=== PATIENT | male | born 1940 | race Caucasian/White ===

== ENCOUNTER 2022-08-05 13:49 | Inpatient (IN) | payer MEDICARE, BC ==
[2022-08-05 16:45] LABS: Basophils % (A) 0 %; Eosinophils # (A) 0.1 k/uL (0-0.7); Eosinophils % (A) 1 %; HCT 45.5 % (39.0-53.0); HGB 15.3 gm/dL (13.0-17.5); Lymphocytes # (A) 1.1 k/uL (1.0-4.8); Lymphocytes % (A) 11 %; MCH 30.6 pg (25.0-35.0); MCHC 33.6 g/dL (31.0-37.0); MCV 91.2 fL (80.0-100.0); Mean Platelet Volume 7.3; Monocytes # (A) 0.4 k/uL (0-1.0); Monocytes % (A) 4 %; Neutrophils # (A) 7.7 k/uL (1.3-7.7); Neutrophils % (A) 81 %; Platelet Count 159 k/uL (150-450); RBC 4.99 m/uL (4.30-5.90); RDW 13.8 % (11.5-15.5); WBC 9.5 k/uL (3.8-10.6)
--- NOTE | 2022-08-05 16:48 | ED ---
General Adult HPI - General Chief complaint: Weakness Stated complaint: hypotension 84/53, dizziness Time Seen by Provider: 08/05/22 14:58 Source: patient, family, RN notes reviewed, old records reviewed Mode of arrival: ambulatory Limitations: no limitations - History of Present Illness Initial comments: 81-year-old male alert and oriented 4 presents to the emergency room with 2 family members complaining of weakness for the past week. He states over the past 3 days he has had chills and abdominal pain intermittently. Family states they checked his temperature and it was 100.5. Family states that he has had these intermittent chills for years but never had a fever in the past. Patient denies any nausea vomiting, cough, sore throat or runny nose. No known sick contacts. He did take a coronavirus test at home that was negative. Patient states he did talk to his primary care doctor about his chills and they have been unable to find a cause. He did call his primary care doctor today who recommended he come to the emergency room for evaluation. He does have a history of coronary artery disease, hypertension and irritable bowel. -: days(s) (3) Location: abdomen Consistency: intermittent, now resolved Associated Symptoms: fever/chills, other (dizziness) - Related Data Home Medications Medication Instructions Recorded Confirmed Aspirin EC [Ecotrin Low Dose] 81 mg PO W/KFST 08/05/22 08/05/22 Aspirin/Sod Bicarb/Citric Acid 1 tab PO QID PRN 08/05/22 08/05/22 [Catalina-Macy Original Tab Eff] Calcium Carbonate [Tums] 1,000 mg PO TID PRN 08/05/22 08/05/22 Cholecalciferol [Vitamin D3 (25 50 mcg PO W/BRKFST 08/05/22 08/05/22 Mcg = 1000 Iu)] Docusate [Colace] 100 mg PO DAILY PRN 08/05/22 08/05/22 Famotidine [Pepcid AC] 10 mg PO DAILY PRN 08/05/22 08/05/22 Finasteride [Proscar] 5 mg PO Q2D@1700 08/05/22 08/05/22 Levothyroxine Sodium [Synthroid] 75 mcg PO AC-BRKFST 08/05/22 08/05/22 Losartan Potassium 100 mg PO W/BRKFST 08/05/22 08/05/22 Metoprolol Tartrate [Lopressor] 25 mg PO TID-W/MEALS 08/05/22 08/05/22 Tamsulosin [Flomax] 0.4 mg PO W/SUPPER 08/05/22 08/05/22 diazePAM [Valium] 2 mg PO BID PRN 08/05/22 08/05/22 hydroCHLOROthiazide [Hydrodiuril] 25 mg PO W/BRKFST 08/05/22 08/05/22 Allergies Allergy/AdvReac Type Severity Reaction Status Date / Time No Known Allergies Allergy Verified 08/05/22 18:20 Review of Systems ROS Statement: Those systems with pertinent positive or pertinent negative responses have been documented in the HPI. ROS Other: All systems not noted in ROS Statement are negative. Past Medical History Past Medical History: Coronary Artery Disease (CAD), GERD/Reflux, Hypertension, Prostate Disorder, Thyroid Disorder History of Any Multi-Drug Resistant Organisms: None Reported Past Surgical History: No Surgical Hx Reported Past Psychological History: No Psychological Hx Reported Smoking Status: Never smoker Past Alcohol Use History: None Reported Past Drug Use History: None Reported General Exam Limitations: no limitations General appearance: alert, in no apparent distress Head exam: Present: atraumatic Eye exam: Absent: scleral icterus, conjunctival injection, periorbital swelling ENT exam: Present: mucous membranes moist, other (poor dentition) Neck exam: Present: normal inspection. Absent: tenderness, meningismus Respiratory exam: Present: normal lung sounds bilaterally, rales (bases). Absent: respiratory distress, wheezes, rhonchi, stridor, accessory muscle use Cardiovascular Exam: Present: regular rate GI/Abdominal exam: Present: soft. Absent: distended, tenderness, guarding, rebound, rigid Extremities exam: Present: normal capillary refill. Absent: pedal edema Back exam: Present: normal inspection. Absent: tenderness, CVA tenderness (R), CVA tenderness (L), rash noted Neurological exam: Present: alert, oriented X3 Psychiatric exam: Present: normal affect, normal mood Skin exam: Present: warm, dry, normal color. Absent: cyanosis, diaphoretic, petechiae, pallor Course Vital Signs 08/05/22 14:08 Temperature 97.9 F Pulse Rate 76 Respiratory 20 Rate Blood Pressure 125/73 O2 Sat by Pulse 99 Oximetry EKG Findings - EKG Results: EKG: sinus rhythm (Sinus rhythm, ventricular rate of 68, VA interval 0.20, QRS 0.129, QTC 0.420; left axis deviation; occasional PVC; no old to compare) Medical Decision Making - Medical Decision Making Patient presents with 1 week of generalized malaise worsening over past 3 days with some shortness of breath. Family states he did have a low-grade temperature of 100.5 Chest x-ray shows a possible lower lobe infiltrate with pulmonary vascular congestion consistent with congestive heart failure. Due to the patient's complaints of fever with possible lower lobe infiltrate on xr, patient will be treated with IV antibiotics. BNP 3200. Patient was given IV Lasix. Troponin is negative at 0.012 EKG shows sinus rhythm. Coronavirus test negative. Oxygen saturation is 99% on room air. Family and patient unsure if he has a history of congestive heart failure. Case discussed with Dr. Zayas, patient will be admitted for congestive heart failure with cardiology consult. - Lab Data Result diagrams: 08/05/22 16:34 08/05/22 16:34 Lab Results 08/05/22 08/05/22 08/05/22 Range/Units 16:34 16:34 16:34 WBC 9.5 (3.8-10.6) k/uL RBC 4.99 (4.30-5.90) m/uL Hgb 15.3 (13.0-17.5) gm/dL Hct 45.5 (39.0-53.0) % MCV 91.2 (80.0-100.0) fL MCH 30.6 (25.0-35.0) pg MCHC 33.6 (31.0-37.0) g/dL RDW 13.8 (11.5-15.5) % Plt Count 159 (150-450) k/uL MPV 7.3 Neutrophils % 81 % Lymphocytes % 11 % Monocytes % 4 % Eosinophils % 1 % Basophils % 0 % Neutrophils # 7.7 (1.3-7.7) k/uL Lymphocytes # 1.1 (1.0-4.8) k/uL Monocytes # 0.4 (0-1.0) k/uL Eosinophils # 0.1 (0-0.7) k/uL Basophils # 0.0 (0-0.2) k/uL PT 10.7 (9.0-12.0) sec INR 1.0 (<1.2) APTT 25.6 (22.0-30.0) sec Sodium 135 L (137-145) mmol/L Potassium 3.4 L (3.5-5.1) mmol/L Chloride 100 (98-107) mmol/L Carbon Dioxide 21 L (22-30) mmol/L Anion Gap 14 mmol/L BUN 15 (9-20) mg/dL Creatinine 0.92 (0.66-1.25) mg/dL Est GFR (CKD-EPI)AfAm 89 (>60 ml/min/1.73 sqM) Est GFR (CKD-EPI)NonAf 77 (>60 ml/min/1.73 sqM) Glucose 92 (74-99) mg/dL Calcium 8.9 (8.4-10.2) mg/dL Magnesium 1.8 (1.6-2.3) mg/dL Total Bilirubin 0.4 (0.2-1.3) mg/dL AST 34 (17-59) U/L ALT 17 (4-49) U/L Alkaline Phosphatase 74 (38-126) U/L Troponin I (0.000-0.034) ng/mL NT-Pro-B Natriuret Pep pg/mL Total Protein 6.8 (6.3-8.2) g/dL Albumin 3.8 (3.5-5.0) g/dL Coronavirus (PCR) (Not Detectd) 08/05/22 08/05/22 08/05/22 Range/Units 16:34 16:34 17:29 WBC (3.8-10.6) k/uL RBC (4.30-5.90) m/uL Hgb (13.0-17.5) gm/dL Hct (39.0-53.0) % MCV (80.0-100.0) fL MCH (25.0-35.0) pg MCHC (31.0-37.0) g/dL RDW (11.5-15.5) % Plt Count (150-450) k/uL MPV Neutrophils % % Lymphocytes % % Monocytes % % Eosinophils % % Basophils % % Neutrophils # (1.3-7.7) k/uL Lymphocytes # (1.0-4.8) k/uL Monocytes # (0-1.0) k/uL Eosinophils # (0-0.7) k/uL Basophils # (0-0.2) k/uL PT (9.0-12.0) sec INR (<1.2) APTT (22.0-30.0) sec Sodium (137-145) mmol/L Potassium (3.5-5.1) mmol/L Chloride (98-107) mmol/L Carbon Dioxide (22-30) mmol/L Anion Gap mmol/L BUN (9-20) mg/dL Creatinine (0.66-1.25) mg/dL Est GFR (CKD-EPI)AfAm (>60 ml/min/1.73 sqM) Est GFR (CKD-EPI)NonAf (>60 ml/min/1.73 sqM) Glucose (74-99) mg/dL Calcium (8.4-10.2) mg/dL Magnesium (1.6-2.3) mg/dL Total Bilirubin (0.2-1.3) mg/dL AST (17-59) U/L ALT (4-49) U/L Alkaline Phosphatase (38-126) U/L Troponin I <0.012 (0.000-0.034) ng/mL NT-Pro-B Natriuret Pep 3200 pg/mL Total Protein (6.3-8.2) g/dL Albumin (3.5-5.0) g/dL Coronavirus (PCR) Not Detected (Not Detectd) Disposition Clinical Impression: CHF (congestive heart failure) Disposition: ADMITTED IP TO THIS HOSP Referrals: Alli Gustafson MD [Primary Care Provider] - 1-2 days Decision Date: 08/05/22 Decision Time: 17:49
[2022-08-05 16:53] LABS: Partial Thromboplastin Time 25.6 sec (22.0-30.0); Prothrombin Time 10.7 sec (9.0-12.0)
--- NOTE | 2022-08-05 16:53 | XR ---
EXAMINATION TYPE: XR chest 2V DATE OF EXAM: 08/05/2022 4:50 PM COMPARISON: None TECHNIQUE: XR chest 2V Frontal and lateral views of the chest. CLINICAL INDICATION:Male, 81 years old with history of Weakness; FINDINGS: Lungs/Pleura: There is no evidence of pleural effusion, , or pneumothorax. Possible lower lobe infil trate seen on lateral view. Pulmonary vascularity: Pulmonary vascular congestion. Heart/mediastinum: Cardiomediastinal silhouette is enlarged and stable. Musculoskeletal: No acute osseous pathology. IMPRESSION: 1. Cardiomegaly and mild pulmonary vascular congestion. Correlate with BNP for congestive heart fail ure. 2. Superimposed lower lobe infiltrate not entirely excluded. Correlate for pneumonia and/or aspirati on.
[2022-08-05 17:02] LABS: Albumin 3.8 g/dL (3.5-5.0); Calcium 8.9 mg/dL (8.4-10.2); Magnesium 1.8 mg/dL (1.6-2.3); Potassium 3.4 mmol/L (3.5-5.1); Total Bilirubin 0.4 mg/dL (0.2-1.3); Total Protein 6.8 g/dL (6.3-8.2)
[2022-08-05] MEDS ORDERED: FUROSEMIDE 10 MG/ML 4 ML VIAL IV STA (17:33)
[2022-08-05] MEDS ORDERED: cefTRIAXone IN SWFI 1,000 MG/10 ML SYRINGE IVP STA (17:58)
[2022-08-05] MEDS ORDERED: NALOXONE 0.4 MG/ML 1 ML VIAL IV PRN (18:15)
[2022-08-05] MEDS ORDERED: ACETAMINOPHEN TAB 325 MG TAB PO PRN (18:15)
[2022-08-05 19:51] LABS: Appearance,Urine Clear (Clear); Bilirubin,Urine Negative (Negative); Blood,Urine Trace (Negative); Color,Urine Yellow; Glucose,Urine (UA) Negative (Negative); Hyaline Casts,Urine 1 /lpf (0-2); Ketones,Urine 2+ (Negative); Leukocyte Esterase,Urine Negative (Negative); Mucus,Urine Occasional /hpf; Nitrite,Urine Negative (Negative); Protein,Urine Trace (Negative); RBC,Urine 2 /hpf (0-5); Specific Gravity,Urine 1.019 (1.001-1.035); Squamous Epithelial Cell,Urine <1 /hpf (0-4); Urobilinogen,Urine <2.0 mg/dL (<2.0); WBC,Urine 2 /hpf (0-5)
[2022-08-05] MEDS: METOPROLOL TARTRATE 25 MG TAB PO SCH (21:45)
[2022-08-05] MEDS: CALCIUM CARBONATE 500 MG CHEWABLE PO PRN (23:53)
[2022-08-06] MEDS: METOPROLOL TARTRATE 25 MG TAB PO SCH ×3 (08:28→17:50)
[2022-08-06] MEDS: CALCIUM CARBONATE 500 MG CHEWABLE PO PRN (08:32)
[2022-08-06] MEDS ORDERED: FUROSEMIDE 10 MG/ML 4 ML VIAL IV STA (11:50)
--- NOTE | 2022-08-06 11:50 | P.CRDCN ---
History of Present Illness History of present illness: HISTORY OF PRESENTING ILLNESS Patient is pleasant 81-year-old male with history of hypertension, BPH, questionable history of coronary artery disease however patient denies. Patient normally follows with Dr. Hernandez. He states he has had frequent issues where he will get chills and what appears to be Reiger's where he will be shaking for an hour or 2. Normally these only last for a day and are fairly infrequent. Over last 3-5 days he had had recurrent episodes and had borderline fever with temperature 100.5. Additional intermittent mild abdominal pain. Denies any cough. He states additionally has felt very fatigued and checked his blood pressure home and was in the 80s over 50s. He has had no changes in medications other then in March. Normally does not feel lightheaded. ProBNP was noted to be elevated at 3000 with normal kidney function, normal white blood cell count no rmal urinalysis. Chest x-ray showed concern of possible vascular congestion as well as possible pneumonia. He was given IV Lasix as well as Rocephin and his home blood pressure medications have additionally been held. Blood pressure now in the 120s to 140 range off of antihypertensive medications and currently states he feels better in terms of his lightheadedness. EKG shows sinus rhythm with Q waves V1 through V3 and nonspecific 0.[address] depressions in the lateral leads. Troponin normal 1. REVIEW OF SYSTEMS At the time of my exam: CONSTITUTIONAL: Denies fever, +chills. CARDIOVASCULAR: Denies chest pain, +chronic shortness of breath, denies orthopnea, PND or palpitations. RESPIRATORY: Denies cough. GASTROINTESTINAL: Denies abdominal pain, diarrhea, constipation, nausea or vomiting. MUSCULOSKELETAL: Denies myalgias. NEUROLOGIC: Denies numbness, tingling or weakness. ENDOCRINE: Denies fatigue, weight change, polydipsia or polyurina. GENITOURINARY: Denies burning, hematuria or urgency with micturation. HEMATOLOGIC: Denies history of anemia or bleeding. PHYSICAL EXAMINATION Vital signs reviewed. CONSTITUTIONAL: No apparent distress. HEENT: Head is normocephalic. Pupils are equal, round. Sclerae anicteric. Mucous membranes of the mouth are moist. No JVD. No carotid bruit. CHEST EXAMINATION: Mild crackles at bases HEART EXAMINATION: Regular rate and rhythm. S1, S2 heard. No murmurs, gallops or rub. ABDOMEN: Soft, nontender. Positive bowel sounds. EXTREMITIES: 2+ peripheral pulses, no lower extremity edema and no calf tenderness. NEUROLOGIC EXAMINATION: Patient is awake, alert and oriented x3. ASSESSMENT 1. Recent chills, shaking concerning for Reiger's and borderline fevers. Rule out affection/sepsis 2. Hypotension (BP 80/50's at home) with lightheadedness may be related to over medication versus sepsis 3. Acute on chronic heart failure, unknown systolic or diastolic. Appears mild and appears near euvolemic after 1 dose of IV Lasix 4. Hypertension 5. Reported history of CAD 6. Fatigue PLAN Patient with main complaint of recent chills, shaking consistent with Reiger's and borderline fevers. Symptoms concerning for sepsis with workup at this point unrevealing. Chest x-ray showing possible pneumonia however no obvious symptoms of cough. Patient with lightheaded and hypotensive episodes which may be related to sepsis or overmedicated. Continue to hold blood pressure medications for now. Overall patient had mild fine motor overload on x-ray and appears near euvolemic after IV Lasix. Continue one more dose of IV Lasix and transition ba ck to home with oral diuretics tomorrow. Possible discharge home tomorrow. Check repeat 2-D echo however if not performed in the hospital may be performed in the office. Hopeful discharge home in 24-48 hours. Past Medical History Past Medical History: Coronary Artery Disease (CAD), GERD/Reflux, Hypertension, Prostate Disorder, Thyroid Disorder History of Any Multi-Drug Resistant Organisms: None Reported Past Surgical History: No Surgical Hx Reported Past Anesthesia/Blood Transfusion Reactions: No Reported Reaction Past Psychological History: No Psychological Hx Reported Smoking Status: Never smoker Past Alcohol Use History: None Reported Past Drug Use History: None Reported Medications and Allergies Home Medications Medication Instructions Recorded Confirmed Type Aspirin EC [Ecotrin Low Dose] 81 mg PO W/BRKFST 08/05/22 08/05/22 History Aspirin/Sod Bicarb/Citric Acid 1 tab PO QID PRN 08/05/22 08/05/22 History [Catalina-Macy Original Tab Eff] Calcium Carbonate [Tums] 1,000 mg PO TID PRN 08/05/22 08/05/22 History Cholecalciferol [Vitamin D3 (25 50 mcg PO W/BRKFST 08/05/22/09/22 History Mcg = 1000 Iu)] Docusate [Colace] 100 mg PO DAILY PRN 08/05/22 08/05/22 History Famotidine [Pepcid AC] 10 mg PO DAILY PRN 08/05/22 08/05/22 History Finasteride [Proscar] 5 mg PO Q2D@1700 08/05/22 08/05/22 History Levothyroxine Sodium [Synthroid] 75 mcg PO AC-BRKFST 08/05/22 08/05/22 History Losartan Potassium 100 mg PO W/BRKFST 08/05/22 08/05/22 History Metoprolol Tartrate [Lopressor] 25 mg PO TID-W/MEALS 08/05/22 08/05/22 History Tamsulosin [Flomax] 0.4 mg PO W/SUPPER 08/05/22 08/05/22 History diazePAM [Valium] 2 mg PO BID PRN 08/05/22 08/05/22 History hydroCHLOROthiazide [Hydrodiuril] 25 mg PO W/BRKFST 08/05/22 08/05/22 History Allergies Allergy/AdvReac Type Severity Reaction Status Date / Time No Known Allergies Allergy Verified 08/05/22 18:20 Physical Exam Vitals: Vital Signs Temp Pulse Pulse Resp BP BP Pulse Ox 08/06/22 08:00 67 18 08/06/22 07:00 97.8 F 67 18 154/81 97 08/06/22 01:49 83 18 08/06/22 01:23 98.1 F 72 16 111/70 96 08/05/22 21:00 18 08/05/22 20:52 97.4 F L 83 17 146/79 98 08/05/22 20:05 98.2 F 74 18 126/80 99 08/05/22 18:45 74 20 122/66 97 08/05/22 14:08 97.9 F 76 20 125/73 99 Intake and Output 08/05/22 08/06/22 08/06/22 22:59 06:59 14:59 Intake Total 240 Output Total 850 Balance -850 240 Intake: Oral 240 Output: Urine 850 Other: Voiding Method Toilet Toilet Toilet # Voids 2 2 Weight 97.522 kg Results 08/05/22 16:34 08/05/22 16:34 Cardiac Enzymes 08/05/22 08/05/22 Range/Units 16:34 16:34 AST 34 (17-59) U/L Troponin I <0.012 (0.000-0.034) ng/mL Coagulation 08/05/22 Range/Units 16:34 PT 10.7 (9.0-12.0) sec APTT 25.6 (22.0-30.0) sec CBC 08/05/22 Range/Units 16:34 WBC 9.5 (3.8-10.6) k/uL RBC 4.99 (4.30-5.90) m/uL Hgb 15.3 (13.0-17.5) gm/dL Hct 45.5 (39.0-53.0) % Plt Count 159 (150-450) k/uL Comprehensive Metabolic Panel 08/05/22 Range/Units 16:34 Sodium 135 L (137-145) mmol/L Potassium 3.4 L (3.5-5.1) mmol/L Chloride 100 (98-107) mmol/L Carbon Dioxide 21 L (22-30) mmol/L BUN 15 (9-20) mg/dL Creatinine 0.92 (0.66-1.25) mg/dL Glucose 92 (74-99) mg/dL Calcium 8.9 (8.4-10.2) mg/dL AST 34 (17-59) U/L ALT 17 (4-49) U/L Alkaline Phosphatase 74 (38-126) U/L Total Protein 6.8 (6.3-8.2) g/dL Albumin 3.8 (3.5-5.0) g/dL Current Medications Generic Name Dose Route Start Last Admin Trade Name Freq PRN Reason Stop Dose Admin Acetaminophen 650 mg 08/05/22 18:15 Acetaminophen Tab 325 Mg Tab PO Q6HR PRN Mild Pain or Fever > 100.5 Calcium Carbonate/Glycine 1,000 mg 08/05/22 21:36 08/06/22 08:32 Calcium Carbonate 500 Mg Chewable PO 1,000 mg TID PRN Administration GI Upset Metoprolol Tartrate 25 mg 08/05/22 21:45 08/06/22 08:28 Metoprolol Tartrate 25 Mg Tab PO 25 mg TID-W/MEALS FARRAH Administration Naloxone HCl 0.2 mg 08/05/22 18:15 Naloxone 0.4 Mg/Ml 1 Ml Vial IV Q2M PRN Opioid Reversal Intake and Output 08/05/22 08/06/22 08/06/22 22:59 06:59 14:59 Intake Total 240 Output Total 850 Balance -850 240 Intake: Oral 240 Output: Urine 850 Other: Voiding Method Toilet Toilet Toilet # Voids 2 2 Weight 97.522 kg 08/05/22 16:34 08/05/22 16:34
--- NOTE | 2022-08-06 12:42 | CA ---
Transthoracic Echo Report Name: Jet Cochran Age: 81 Gender: M : 1940 Exam Date: 08/06/2022 07:46 Exam Location: [facility] Ht (in): 69 Wt (lb): 215 Ordering Physician: Beau Scanlon Attending/Referring Phys: Last Puller Mirian Toro RDCS Procedure CPT: Indications: chf Cardiac Hx: Technical Quality: Good Contrast 1: Total Dose (mL): Contrast 2: Total Dose (mL): MEASUREMENTS (Male / Female) Normal Values 2D ECHO LV Diastolic Diameter PLAX 3.9 cm 4.2 - 5.9 / 3.9 - 5.3 cm LV Systolic Diameter PLAX 3.1 cm IVS Diastolic Thickness 1.4 cm 0.6 - 1.0 / 0.6 - 0.9 cm LVPW Diastolic Thickness 1.3 cm 0.6 - 1.0 / 0.6 - 0.9 cm LV Relative Wall Thickness 0.7 RV Internal Dim ED PLAX 3.4 cm LV Diastolic Volume MOD BP 99.0 cm??? 67 - 155 / 56 - 104 cm??? LV Systolic Volume MOD BP 50.2 cm??? 22 - 58 / 19 - 49 cm??? LV Ejection Fraction MOD BP 49.2 % >= 55 % LV Diastolic Volume MOD 4C 103.0 cm??? LV Systolic Volume MOD 4C 42.2 cm??? LV Ejection Fraction MOD 4C 59.1 % LV Diastolic Length 4C 6.7 cm LV Systolic Length 4C 6.7 cm LV Diastolic Volume MOD 2C 80.5 cm??? LV Systolic Volume MOD 2C 60.5 cm??? LV Ejection Fraction MOD 2C 24.8 % LV Diastolic Length 2C 8.0 cm LV Systolic Length 2C 6.9 cm LA Volume 47.3 cm??? 18 - 58 / 22 - 52 cm??? M-MODE Aortic Root Diameter MM 3.8 cm LA Systolic Diameter MM 3.1 cm LA Ao Ratio MM 0.8 MV E Point Septal Separation 1.0 cm AV Cusp Separation MM 2.5 cm DOPPLER AV Peak Velocity 111.6 cm/s AV Peak Gradient 5.0 mmHg AI Peak Velocity 441.5 cm/s AI Peak Gradient 78.0 mmHg AI Pressure Half Time 1339.0 ms MV Area PHT 2.7 cm??? MR Peak Velocity 191.4 cm/s MR Peak Gradient 14.6 mmHg Mitral E Point Velocity 67.0 cm/s Mitral A Point Velocity 98.4 cm/s Mitral E to A Ratio 0.7 MV Deceleration Time 279.4 ms MV E' Velocity 4.2 cm/s Mitral E to MV E' Ratio 16.1 TR Peak Velocity 149.2 cm/s TR Peak Gradient 8.9 mmHg Right Ventricular Systolic Press 13.3 mmHg PV Peak Velocity 99.1 cm/s PV Peak Gradient 3.9 mmHg PI Peak Gradient 8.3 mmHg FINDINGS Left Ventricle Mildly increased septal wall thickness. Mildly decreased left ventricular ejection fraction. Left ventricular ejection fraction is estimated at 40-45 %. Left ventricular cavity size normal. Right Ventricle The right ventricle is normal in size and function. Right Atrium The right atrium is normal in size. Left Atrium The left atrium is normal in size. Mitral Valve Structurally normal mitral valve without significant stenosis or prolapse. There is no mitral regurgitation. Aortic Valve Structurally normal aortic valve without significant sclerosis or stenosis. There is mild aortic regurgitation. Tricuspid Valve Structurally normal tricuspid valve without significant stenosis. Pulmonary artery systolic pressure is normal. Mild tricuspid regurgitation. Pulmonic Valve Structurally normal pulmonic valve without significant stenosis. There is mild pulmonic regurgitation. Pericardium Normal pericardium without effusion. Aorta Normal aortic root dimension. CONCLUSIONS Mild LVH Global hypokinesis with ejection fraction 40-45% Mild aortic regurgitation Mild tricuspid regurgitation RVSP 13 No pericardial effusion Previewed by: Dr. Chato Garcia DO (Electronically Signed) Final Date: 06 August 2022 12:42
[2022-08-06] MEDS ORDERED: POTASSIUM CHLORIDE ER 20 MEQ TAB.ER PO STA (13:27)
[2022-08-06] MEDS: AZITHROMYCIN 500 MG TAB PO SCH (14:24)
[2022-08-06] MEDS: ASPIRIN 81 MG PO SCH (14:24)
[2022-08-06] MEDS: LEVOTHYROXINE 75 MCG TAB PO SCH (14:24)
[2022-08-06] MEDS: TAMSULOSIN 0.4 MG CAP.ER.24H PO SCH (17:50)
[2022-08-06] MEDS: FINASTERIDE 5 MG TAB PO SCH (17:50)
[2022-08-06] MEDS: HEPARIN SODIUM,PORCINE/PF 5,000 UNIT/0.5 ML SYRINGE SQ SCH ×2 (17:50→19:31)
--- NOTE | 2022-08-07 02:17 | P.HPIM ---
History of Present Illness H&P Date: 08/06/22 Chief Complaint: Generalized weakness Patient is a 81-year-old male with a known history of coronary disease, hypertension, GERD, BPH and hypothyroidism presents to ER with his family most with complaints of generalized weakness for the past 1 week. Patient states that he has been having chills and abdominal pain intermittently for the past 3 days. Temperature check at home was 100.5 F. Otherwise patient denied any complaints of chest pain or shortness of breath. No cough or sputum production. No nausea vomiting abdominal pain or diarrhea. Patient did talk to his primary care physician regarding his chills and was recommended to go to ER for further evaluation. On admission chest x-ray showed cardiomegaly and mild pulmonary vascular congestion. Correlate with BNP for congestive heart failure. Superimposed lower lobe infiltrate not entirely excluded. Correlate for pneumonia or aspiration. EKG showed sinus rhythm with occasional ventricular premature complexes. Laboratory data showed WBC 9.5 hemoglobin 13.3 and platelets 159 Sodium 134 potassium 3.4 chloride 100 bicarbonate 21 BUN 15 and creatinine 0.92 liver enzymes are not elevated proBNP 3200 and troponin x2 negative and albumin 3.8 urinalysis is negative for infection with 2+ ketones Coronavirus PCR not detected. Review of Systems Constitutional: Patient does have fever chills and generalized weakness. Abdomen: Patient denied any nausea or vomiting or positive abd. pain Cardiovascular: Patient denies any chest pain or short of breath no palpitations. Respiratory: patient denied any cough is from production. Mild shortness of breath Neurologic: Patient denied any numbness or tingling headache. Musculoskeletal: Patient denies any complaints of joint swelling or deformity. Skin: Negative Psychiatric: Negative Endocrine: No heat or cold intolerance. No recent weight gain. Genitourinary: No dysuria or hematuria. All other 14 point ROS negative except the above Past Medical History Past Medical History: Coronary Artery Disease (CAD), GERD/Reflux, Hypertension, Prostate Disorder, Thyroid Disorder History of Any Multi-Drug Resistant Organisms: None Reported Past Surgical History: No Surgical Hx Reported Past Anesthesia/Blood Transfusion Reactions: No Reported Reaction Past Psychological History: No Psychological Hx Reported Smoking Status: Never smoker Past Alcohol Use History: None Reported Past Drug Use History: None Reported Medications and Allergies Home Medications Medication Instructions Recorded Confirmed Type Aspirin EC [Ecotrin Low Dose] 81 mg PO W/BRKFST 08/05/22 08/05/22 History Aspirin/Sod Bicarb/Citric Acid 1 tab PO QID PRN 08/05/22 08/05/22 History [[place] Original Tab Eff] Calcium Carbonate [Tums] 1,000 mg PO TID PRN 08/05/22 08/05/22 History Cholecalciferol [Vitamin D3 (25 50 mcg PO W/BRKFST 08/05/22 08/05/22 History Mcg = 1000 Iu)] Docusate [Colace] 100 mg PO DAILY PRN 08/05/22 08/05/22 History Famotidine [Pepcid AC] 10 mg PO DAILY PRN 08/05/22 08/05/22 History Finasteride [Proscar] 5 mg PO Q2D@1700 08/05/22 08/05/22 History Levothyroxine Sodium [Synthroid] 75 mcg PO AC-BRKFST 08/05/22 08/05/22 History Losartan Potassium 100 mg PO W/BRKFST 08/05/22 08/05/22 History Metoprolol Tartrate [Lopressor] 25 mg PO TID-W/MEALS 08/05/22 08/05/22 History Tamsulosin [Flomax] 0.4 mg PO W/SUPPER 08/05/22 08/05/22 History diazePAM [Valium] 2 mg PO BID PRN 08/05/22 08/05/22 History hydroCHLOROthiazide [Hydrodiuril] 25 mg PO W/BRKFST 08/05/22 08/05/22 History Allergies Allergy/AdvReac Type Severity Reaction Status Date / Time No Known Allergies Allergy Verified 08/05/22 18:20 Physical Exam Vitals: Vital Signs Temp Pulse Pulse Resp BP BP Pulse Ox 08/06/22 08:00 67 18 08/06/22 07:00 97.8 F 67 18 154/81 97 08/06/22 01:49 83 18 08/06/22 01:23 98.1 F 72 16 111/70 96 08/05/22 21:00 18 08/05/22 20:52 97.4 F L 83 17 146/79 98 08/05/22 20:05 98.2 F 74 18 126/80 99 08/05/22 18:45 74 20 122/66 97 08/05/22 14:08 97.9 F 76 20 125/73 99 Intake and Output 08/05/22 08/06/22 08/06/22 22:59 06:59 14:59 Intake Total 240 Output Total 850 Balance -850 240 Intake: Oral 240 Output: Urine 850 Other: Voiding Method Toilet Toilet Toilet # Voids 2 2 Weight 97.522 kg PHYSICAL EXAMINATION: Patient is lying in the bed comfortably, no acute distress, awake alert and o riented.. HEENT: Normocephalic. Neck is supple. Pupils reactive. Nostrils clear. Oral cavity is moist. Neck reveals no JVD, carotid bruits, or thyromegaly. CHEST EXAMINATION: Trachea is central. Symmetrical expansion. Bibasilar coarse breath sounds. No wheezing. CARDIAC: Normal S1, S2 with no gallops. No murmurs ABDOMEN: Soft. Bowel sounds present. Nontender. No organomegaly. No abdominal bruits. Extremities: reveal no edema. No clubbing or cyanosis Neurologically awake, alert, oriented x3 with well-coordinated movements. No focal deficits noted Skin: No rash or skin lesions. Psychiatric: Coperative. Nonsuicidal, Musculoskeletal: No joint swelling or deformity. Normal range of motion. Results CBC & Chem 7: 08/05/22 16:34 08/05/22 16:34 Labs: Abnormal Lab Results - Last 24 Hours (Table) 08/05/22 08/05/22 Range/Units 16:34 18:51 Sodium 135 L (137-145) mmol/L Potassium 3.4 L (3.5-5.1) mmol/L Carbon Dioxide 21 L (22-30) mmol/L Urine Protein Trace H (Negative) Urine Ketones 2+ H (Negative) Urine Blood Trace H (Negative) Urine Mucus Occasional H (None) /hpf Thrombosis Risk Factor Assmnt - DVT/VTE Prophylaxis DVT/VTE Prophylaxis: Pharmacologic Prophylaxis ordered - Choose All That Apply Any of the Below Risk Factors Present?: Yes Each Factor Represents 1 point: Heart failure (<1month), Obesity (BMI >25) Each Risk Factor Represents 3 Points: Age 75 years or older Other congenital or acquired thrombophilia - If yes, enter type in comment: No Thrombosis Risk Factor Assessment Total Risk Factor Score: 5 Thrombosis Risk Factor Assessment Level: High Risk Assessment and Plan Assessment: Lower lobe infiltrates and possible pneumonia with history of recent chills and fever at home. Generalized weakness Acute on chronic CHF. Ejection fraction not known. Patient was given IV Lasix x1 in the ER. Hypertension Hypothyroidism History of coronary disease no prior history of stent placement DVT prophylaxis and GI prophylaxis Plan Patient will be continued on telemetry monitoring. Status post IV Lasix dose in the ER and improvement in symptoms. Due to history of chills and fever at home patient will be started on antibiotics for CAP and follow-up blood cultures and procalcitonin level. Cardiology was consulted due to elevated BNP level and 2D echocardiogram was ordered. Continue with metoprolol and aspirin and follow-up closely. Follow-up repeat chest x-ray tomorrow. Prognosis is guarded. Time with Patient: Greater than 30
--- NOTE | 2022-08-07 07:05 | XR ---
EXAMINATION TYPE: XR chest 1V DATE OF EXAM: 08/07/2022 CLINICAL HISTORY: Difficulty breathing an CHF progress study. TECHNIQUE: Single AP portable frontal view of the chest is obtained. COMPARISON: Chest x-ray from 2 days earlier FINDINGS: Osseous structures remain demineralized. Metallic anchor left humeral head redemonstrated. Stable mild cardiomegaly. Persistent increased markings bilaterally. No new focal airspace opacity, p leural effusion, or pneumothorax seen. IMPRESSION: Increased interstitial markings bilaterally favors chronic parenchymal fibrosis. Correlat ion with older x-rays and/or CT would be beneficial. Mild Cardiomegaly redemonstrated. No new acute i nfiltrate.
[2022-08-07] MEDS: LEVOTHYROXINE 75 MCG TAB PO SCH (07:52)
[2022-08-07] MEDS: HEPARIN SODIUM,PORCINE/PF 5,000 UNIT/0.5 ML SYRINGE SQ SCH ×3 (07:52→19:54)
[2022-08-07] MEDS: METOPROLOL TARTRATE 25 MG TAB PO SCH ×3 (07:52→16:31)
[2022-08-07] MEDS: ASPIRIN 81 MG PO SCH (07:52)
[2022-08-07 09:05] LABS: Basophils # (A) 0.05 X 10*3/uL (0.00-0.10); Eosinophils # (A) 0.28 X 10*3/uL (0.04-0.35); Eosinophils % (A) 5.5 %; HCT 42.5 % (39.6-50.0); HGB 14.3 g/dL (13.0-17.0); Immature Grans, Automated 0.2 %; Lymphocytes # (A) 1.38 X 10*3/uL (0.90-5.00); Lymphocytes % (A) 27.1 %; MCH 29.5 pg (27.0-32.0); MCHC 33.6 g/dL (32.0-37.0); MCV 87.8 fL (80.0-97.0); Monocytes # (A) 0.66 X 10*3/uL (0.20-1.00); NRBC Per 100 WBC 0 /100 WBCS (0.0-0.0); Neutrophils # (A) 2.71 X 10*3/uL (1.80-7.70); Neutrophils % (A) 53.2 %; Platelet Count 188 X 10*3/uL (140-440); RBC 4.84 X 10*6/uL (4.40-5.60); RDW 13.5 % (11.5-14.5); WBC 5.09 X 10*3/uL (4.50-10.00)
[2022-08-07 09:14] LABS: African American GFR (CKD) 91.2 (60.0-200.0); BUN/Creat Ratio 15.67 Ratio (12.00-20.00); Blood Urea Nitrogen 14.1 mg/dL (9.0-27.0); Calcium 8.9 mg/dL (8.7-10.3); Carbon Dioxide 27.6 mmol/L (20.0-27.5); Chloride 102 mmol/L (96-109); Chol/HDL Ratio 2.99 Ratio; Glucose 102 mg/dL (70-110); LDL Cholesterol,Calculated 73.2 mg/dL (0.0-131.0); Non-African American GFR(CKD) 78.7 (60.0-200.0); Potassium 4.6 mmol/L (3.5-5.5); Sodium 137 mmol/L (135-145)
--- NOTE | 2022-08-07 10:40 | P.PN ---
Subjective HISTORY OF PRESENTING ILLNESS Patient is pleasant 81-year-old male with history of hypertension, BPH, questionable history of coronary artery disease however patient denies. Patient normally follows with Dr. Hernandez. He states he has had frequent issues where he will get chills and what appears to be Reiger's where he will be shaking for an hour or 2. Normally these only last for a day and are fairly infrequent. Over last 3-5 days he had had recurrent episodes and had borderline fever with temperature 100.5. Additional intermittent mild abdominal pain. Denies any cough. He states additionally has felt very fatigued and checked his blood pressure home and was in the 80s over 50s. He has had no changes in medications other then in March. Normally does not feel lightheaded. ProBNP was noted to be elevated at 3000 with normal kidney function, normal white blood cell count normal urinalysis. Chest x-ray showed concern of possible vascular congestion as well as possible pneumonia. He was given IV Lasix as well as Rocephin and his home blood pressure medications have additionally been held. Blood pressure now in the 120s to 140 range off of antihypertensive medications and currently states he feels better in terms of his lightheadedness. EKG shows sinus rhythm with Q waves V1 through V3 and nonspecific 0.[address] depressions in the lateral leads. Troponin normal 1. 08/07 Patient seen and examined. Patient denies any chest pain or pressure. He states he is feeling better in terms of lightheadedness and fatigue. Still with some mild dyspnea with walking to the bathroom. PHYSICAL EXAMINATION Vital signs reviewed. CONSTITUTIONAL: No apparent distress. HEENT: Head is normocephalic. Pupils are equal, round. Sclerae anicteric. Mucous membranes of the mouth are moist. No JVD. No carotid bruit. CHEST EXAMINATION: Mild crackles at bases HEART EXAMINATION: Regular rate and rhythm. S1, S2 heard. No murmurs, gallops or rub. ABDOMEN: Soft, nontender. Positive bowel sounds. EXTREMITIES: 2+ peripheral pulses, no lower extremity edema and no calf tenderness. NEUROLOGIC EXAMINATION: Patient is awake, alert and oriented x3. ASSESSMENT 1. Recent chills, shaking concerning for rigors and borderline fevers. Rule out infection/sepsis 2. Hypotension (BP 80/50's at home) with lightheadedness may be related to over medication versus sepsis 3. Acute on chronic heart failure, unknown systolic or diastolic. Appears mild and appears near euvolemic after 1 dose of IV Lasix 4. Hypertension 5. Reported history of CAD 6. Fatigue PLAN Patient with main complaint of recent chills, shaking consistent with rigors and borderline fevers. Lightheadedness has improved after holding home medications and blood pressures still remain stable. Check 2-D echo. Mild crackles at bases and we will give additional dose of IV Lasix. Continue to hold remainder of other blood pressure medications for now. Objective - Vital Signs Vital signs: Vital Signs Temp 97.5 F L 08/07/22 07:00 Pulse 58 L 08/07/22 08:00 Resp 14 08/07/22 08:00 BP 134/81 08/07/22 07:00 Pulse Ox 97 08/07/22 07:00 FiO2 Intake & Output 08/06/22 08/07/22 08/07/22 18:59 06:59 18:59 Intake Total 240 960 480 Output Total 2150 1950 200 Balance -1910 -990 280 Intake: Oral 240 960 480 Output: Urine 2150 1950 200 Other: Voiding Method Toilet Toilet Toilet # Voids 1 - Labs CBC & Chem 7: 08/07/22 05:14 08/07/22 05:14 Labs: Abnormal Lab Results - Last 24 Hours (Table) 08/07/22 08/07/22 Range/Units 05:14 05:14 Carbon Dioxide 27.6 H (20.0-27.5) mmol/L Anion Gap 7.40 L (10.00-18.00) mmol/L Procalcitonin 3.55 H (0.02-0.09) ng/mL
[2022-08-07] MEDS ORDERED: FUROSEMIDE 10 MG/ML 4 ML VIAL IV SCH (10:45)
[2022-08-07] MEDS: AZITHROMYCIN 500 MG TAB PO SCH (12:24)
[2022-08-07] MEDS: TAMSULOSIN 0.4 MG CAP.ER.24H PO SCH (16:31)
[2022-08-08] MEDS: METOPROLOL SUCCINATE (ER) 50 MG TAB.ER.24H PO SCH (08:33)
[2022-08-08] MEDS: LEVOTHYROXINE 75 MCG TAB PO SCH (08:33)
[2022-08-08] MEDS: ASPIRIN 81 MG PO SCH (08:33)
[2022-08-08] MEDS: HEPARIN SODIUM,PORCINE/PF 5,000 UNIT/0.5 ML SYRINGE SQ SCH ×3 (08:34→23:55)
--- NOTE | 2022-08-08 09:53 | P.PN ---
Subjective Progress Note Date: 08/08/22 HISTORY OF PRESENT ILLNESS: Patient is pleasant 81-year-old male with history of hypertension, BPH, questionable history of coronary artery disease however patient denies. Patient normally follows with Dr. Hernandez. He states he has had frequent issues where he will get chills and what appears to be Reiger's where he will be shaking for an hour or 2. Normally these only last for a day and are fairly infrequent. Over last 3-5 days he had had recurrent episodes and had borderline fever with temperature 100.5. Additional intermittent mild abdominal pain. Denies any cough. He states additionally has felt very fatigued and checked his blood pressure home and was in the 80s over 50s. He has had no changes in medications other then in March. Normally does not feel lightheaded. ProBNP was noted to be elevated at 3000 with normal kidney function, normal white blood cell count normal urinalysis. Chest x-ray showed concern of possible vascular congestion as well as possible pneumonia. He was given IV Lasix as well as Rocephin and his home blood pressure medications have additionally been held. Blood pressure now in the 120s to 140 range off of antihypertensive medications and currently states he feels better in terms of his lightheadedness. EKG shows sinus rhythm with Q waves V1 through V3 and nonspecific 0.[address] depressions in the lateral leads. Troponin normal 1. 08/07 Patient seen and examined. Patient denies any chest pain or pressure. He states he is feeling better in terms of lightheadedness and fatigue. Still with some mild dyspnea with walking to the bathroom. 08/08/2022 Patient examined this morning at the bedside. Patient denies chest pain or pressure. He denies shortness of breath. Patient currently denies dizziness or lightheadedness. Orthostatic blood pressures obtained this morning were negative. Echocardiogram completed revealing ejection fraction 40-45% with global hypokinesis, mild aortic regurgitation, mild tricuspid regurgitation. PHYSICAL EXAM: VITAL SIGNS: Reviewed. GENERAL: Well-developed in no acute distress. NECK: Supple. No JVD or thyromegaly LUNGS: Respirations even and unlabored. Lungs essentially clear to auscultation bilaterally. HEART: Regular rate and rhythm. S1 and S2 heard. EXTREMITIES: Normal range of motion. No clubbing or cyanosis. Peripheral puls es intact. No lower extremity edema ASSESSMENT: 1. Recent chills, shaking concerning for rigors and borderline fevers. Rule out infection/sepsis 2. Hypotension (BP 80/50's at home) with lightheadedness may be related to over medication versus sepsis 3. Acute on chronic heart failure, unknown systolic or diastolic. Appears mild and appears near euvolemic after 1 dose of IV Lasix 4. Hypertension 5. Reported history of CAD 6. Fatigue PLAN: Discontinue Lasix Change metoprolol tartrate to metoprolol succinate 50 mg daily Resume Cozaar at a lower dose of 50 mg and change dosing to at night instead of in the morning Continue to monitor blood pressure Further recommendations pending patient's course Nurse practitioner note has been reviewed by physician. Signing provider agrees with the documented findings, assessment, and plan of care. Objective - Vital Signs Vital signs: Vital Signs Temp 97.7 F 08/08/22 07:00 Pulse 80 08/08/22 09:29 Resp 17 08/08/22 07:00 BP 130/77 08/08/22 09:29 Pulse Ox 97 08/08/22 07:00 FiO2 Intake & Output 08/07/22 08/08/22 08/08/22 18:59 06:59 18:59 Intake Total 840 Output Total 2700 1925 Balance -0 -1924 Intake: Oral 840 Output: Urine 2700 1925 Other: Voiding Method Toilet Toilet Toilet # Voids 1 - Labs CBC & Chem 7: 08/07/22 05:14 08/07/22 05:14
[2022-08-08] MEDS: AZITHROMYCIN 500 MG TAB PO SCH (12:24)
--- NOTE | 2022-08-08 14:24 | P.PN ---
Subjective Progress Note Date: 08/07/22 Patient is a 81-year-old male with a known history of coronary disease, hypertension, GERD, BPH and hypothyroidism presents to ER with his family most with complaints of generalized weakness for the past 1 week. Patient states that he has been having chills and abdominal pain intermittently for the past 3 days. Temperature check at home was 100.5 F. Otherwise patient denied any complaints of chest pain or shortness of breath. No cough or sputum production. No nausea vomiting abdominal pain or diarrhea. Patient did talk to his primary care physician regarding his chills and was recommended to go to ER for further evaluation. On admission chest x-ray showed cardiomegaly and mild pulmonary vascular congestion. Correlate with BNP for congestive heart failure. Superimposed lower lobe infiltrate not entirely excluded. Correlate for pneumonia or aspiration. EKG showed sinus rhythm with occasional ventricular premature complexes. Laboratory data showed WBC 9.5 hemoglobin 13.3 and platelets 159 Sodium 134 potassium 3.4 chloride 100 bicarbonate 21 BUN 15 and creatinine 0.92 liver enzymes are not elevated proBNP 3200 and troponin x2 negative and albumin 3.8 urinalysis is negative for infection with 2+ ketones Coronavirus PCR not detected. 08/07/2022 Patient is awake alert and oriented 3. No complaints of chest pain. patient has been afebrile. No cough or sputum production. shortness of breath did improve but still having some aggressive dyspnea.. No nausea vomiting or abdominal pain. No chills. Continued on antibiotics in the form of ceftriaxone and azithromycin. Repeat chest x-ray today showed increased interstitial markings bilaterally fever chronic parenchymal fibrosis. Mild cardiomegaly redemonstrated. No new acute infiltrate. Laboratory data showed WBC 5.0 hemoglobin 14.3 and platelets 188 Sodium 137 potassium 4.6 chloride 102 bicarb is 27.6 BUN 14.1 and creatinine 0.9 Cardiology is on board. 2-D echocardiogram was ordered. Current medications reviewed. Objective - Vital Signs Vital signs: Vital Signs Temp 97.8 F 08/07/22 13:41 Pulse 60 08/07/22 19:56 Resp 14 08/07/22 19:56 BP 142/76 08/07/22 13:41 Pulse Ox 96 08/07/22 13:41 FiO2 Intake & Output 08/07/22 08/07/22 08/08/22 06:59 18:59 06:59 Intake Total 960 840 Output Total 1950 2700 400 Balance -990 -1860 -400 Intake: Oral 960 840 Output: Urine 1949 2700 400 Other: Voiding Method Toilet Toilet Toilet # Voids 1 1 - Exam PHYSICAL EXAMINATION: Patient is lying in the bed comfortably, no acute distress, awake alert and oriented.. HEENT: Normocephalic. Neck is supple. Pupils reactive. Nostrils clear. Oral cavity is moist. Neck reveals no JVD, carotid bruits, or thyromegaly. CHEST EXAMINATION: Trachea is central. Symmetrical expansion. Bibasilar coarse breath sounds. No wheezing. CARDIAC: Normal S1, S2 with no gallops. No murmurs ABDOMEN: Soft. Bowel sounds present. Nontender. No organomegaly. No abdominal bruits. Extremities: reveal no edema. No clubbing or cyanosis Neurologically awake, alert, oriented x3 with well-coordinated movements. No focal deficits noted Skin: No rash or skin lesions. Psychiatric: Coperative. Nonsuicidal, Musculoskeletal: No joint swelling or deformity. Normal range of motion. - Labs CBC & Chem 7: 08/07/22 05:14 08/07/22 05:14 Labs: Abnormal Lab Results - Last 24 Hours (Table) 08/07/22 08/07/22 Range/Units 05:14 05:14 Carbon Dioxide 27.6 H (20.0-27.5) mmol/L Anion Gap 7.40 L (10.00-18.00) mmol/L Procalcitonin 3.55 H (0.02-0.09) ng/mL Assessment and Plan Assessment: Lower lobe infiltrates and possible pneumonia with history of recent chills and fever at home. Generalized weakness Hypotension at home likely due to medication use. Acute on chronic CHF. Ejection fraction not known. Patient was given IV Lasix x1 in the ER. Hypertension Hypothyroidism History of coronary disease no prior history of stent placement DVT prophylaxis and GI prophylaxis Plan Patient will be continued on telemetry monitoring. Status post IV Lasix dose in the ER and improvement in symptoms. Due to history of chills and fever at home patient will be started on antibiotics for CAP and follow-up blood cultures. Pro calcitonin level level is elevated at 3.55. Cardiology has seen the patient. 2-D echo Was Ordered. Elevated BNP and No Increased Leg Swelling.. Continue with metoprolol and aspirin and follow-up closely. Hydrochlorothiazide, losartan on hold. Repeat chest x-ray showed no new acute infiltrate. Patient is improving symptomatically. Anticipate discharge in the next 24 hours. Time with Patient: Greater than 30
[2022-08-08 14:56] VITALS: BMI 31.7
[2022-08-08] MEDS: TAMSULOSIN 0.4 MG CAP.ER.24H PO SCH (16:25)
[2022-08-08] MEDS: FINASTERIDE 5 MG TAB PO SCH (16:25)
--- NOTE | 2022-08-08 17:39 | P.PN ---
Progress Note - Text Progress Note Date: 08/08/22 Hospital course: Patient is a 81-year-old male with a known history of coronary disease, hyperten sully, GERD, BPH and hypothyroidism presents to ER with his family most with complaints of generalized weakness for the past 1 week. Patient states that he has been having chills and abdominal pain intermittently for the past 3 days. Temperature check at home was 100.5 F. Otherwise patient denied any complaints of chest pain or shortness of breath. No cough or sputum production. No nausea vomiting abdominal pain or diarrhea. Patient did talk to his primary care physician regarding his chills and was recommended to go to ER for further evaluation. On admission chest x-ray showed cardiomegaly and mild pulmonary vascular congestion. Correlate with BNP for congestive heart failure. Superimposed lower lobe infiltrate not entirely excluded. Correlate for pneumonia or aspiration. EKG showed sinus rhythm with occasional ventricular premature complexes. Laboratory data showed WBC 9.5 hemoglobin 13.3 and platelets 159 Sodium 134 potassium 3.4 chloride 100 bicarbonate 21 BUN 15 and creatinine 0.92 liver enzymes are not elevated proBNP 3200 and troponin x2 negative and albumin 3.8 urinalysis is negative for infection with 2+ ketones Coronavirus PCR not detected. 08/07/2022 Patient is awake alert and oriented 3. No complaints of chest pain. patient has been afebrile. No cough or sputum production. shortness of breath did improve but still having some aggressive dyspnea.. No nausea vomiting or abdominal pain. No chills. Continued on antibiotics in the form of ceftriaxone and azithromycin. Repeat chest x-ray today showed increased interstitial markings bilaterally fever chronic parenchymal fibrosis. Mild cardiomegaly redemonstrated. No new acute infiltrate. Laboratory data showed WBC 5.0 hemoglobin 14.3 and platelets 188 Sodium 137 potassium 4.6 chloride 102 bicarb is 27.6 BUN 14.1 and creatinine 0.9 Cardiology is on board. 2-D echocardiogram was ordered. August 08: Care was assumed by me today. Some shortness of breath. Some cough. Appetite fair. Had a bowel movement. Up to the bathroom. On IV ceftriaxone. Active Medications Acetaminophen (Acetaminophen Tab 325 Mg Tab) 650 mg PO Q6HR PRN PRN Reason: Mild Pain or Fever > 100.5 Aspirin (Aspirin 81 Mg) 81 mg PO W/BRKFST [facility] Last Admin: 08/08/22 08:33 Dose: 81 mg Calcium Carbonate/Glycine (Calcium Carbonate 500 Mg Chewable) 1,000 mg PO TID PRN PRN Reason: GI Upset Last Admin: 08/06/22 08:32 Dose: 1,000 mg Finasteride (Finasteride 5 Mg Tab) 5 mg PO Q2D@1700 [facility] Last Admin: 08/08/22 16:25 Dose: 5 mg Heparin Sodium (Porcine) (Heparin Sodium,Porcine/Pf 5,000 Unit/0.5 Ml Syringe) 5,000 unit SQ Q8HR [facility] Last Admin: 08/08/22 16:25 Dose: 5,000 unit Ceftriaxone Sodium 1 gm/ (Sodium Chloride) 50 mls @ 100 mls/hr IVPB Q24HR [facility]; Protocol Last Admin: 08/08/22 08:39 Dose: 100 mls/hr Levothyroxine Sodium (Levothyroxine 75 Mcg Tab) 75 mcg PO AC-BRKFST [facility] Last Admin: 08/08/22 08:33 Dose: 75 mcg Losartan Potassium (Losartan 50 Mg Tab) 50 mg PO HS [facility] Metoprolol Succinate (Metoprolol Succinate (Er) 50 Mg Tab.Er.24h) 50 mg PO DAILY [facility] Last Admin: 08/08/22 08:33 Dose: 50 mg Naloxone HCl (Naloxone 0.4 Mg/Ml 1 Ml Vial) 0.2 mg IV Q2M PRN PRN Reason: Opioid Reversal Tamsulosin HCl (Tamsulosin 0.4 Mg Cap.Er.24h) 0.4 mg PO W/SUPPER [facility] Last Admin: 08/08/22 16:25 Dose: 0.4 mg On examination: VITAL SIGNS: [97.7, 16, 17, 1 27 x 80, 97% room air] GENERAL APPEARANCE: Up in chair, awake a bit tired HEENT: Normal external appearance of nose and ear. Oral cavity normal EYES: Pupils equal. Conjunctiva normal. NECK: JVD not raised. Mass not palpable. RESPIRATORY: Respiratory effort increased. Lungs right basilar crackles CARDIOVASCULAR: First and second sounds normal. No edema. ABDOMEN: Soft. Liver and spleen not palpable. No tenderness. No mass palpable. PSYCHIATRY: Alert and oriented x3. Mood and affect normal. INVESTIGATIONS, reviewed in the clinical context: White count 5 hemoglobin 14.3 platelets 188 potassium 4.6 creatinine 0.9 Pro-calcitonin 3.55 Chest x-ray film personally reviewed by me: Some right basal infiltrates 2-D echocardiogram: EF 40-45%. -Lower lobe infiltrates and possible pneumonia with history of recent chills and fever at home, suspect gram-negative organism. IV ceftriaxone -Acute medical debility from pneumonia. Increase activity as tolerated -Acute on chronic CHF. From systolic dysfunction, EF 40-45%. Did receive IV Lasix earlier. Add Aldactone. Cozaar. -Essential Hypertension Cozaar. Toprol-XL. -Hypothyroidism Synthroid 75 g a -coronary disease no prior history of stent placement Aspirin, Lopressor. Add Lipitor -Obesity BMI 31.7 Weight loss measures Discussed with patient. Increase activity. Up in a chair. Add Aldactone. Add Lipitor. Possible discharge 24 hours.
[2022-08-08] MEDS: METOPROLOL TARTRATE 25 MG TAB PO SCH (18:20)
[2022-08-08] MEDS: SPIRONOLACTONE 25 MG TAB PO SCH (18:22)
[2022-08-08] MEDS ORDERED: ATORVASTATIN 20 MG TAB PO SCH (21:00)
[2022-08-08] MEDS ORDERED: LOSARTAN 50 MG TAB PO SCH (21:00)
[2022-08-09] MEDS: LEVOTHYROXINE 75 MCG TAB PO SCH (08:00)
[2022-08-09] MEDS: METOPROLOL SUCCINATE (ER) 50 MG TAB.ER.24H PO SCH (08:00)
[2022-08-09] MEDS: HEPARIN SODIUM,PORCINE/PF 5,000 UNIT/0.5 ML SYRINGE SQ SCH (08:00)
[2022-08-09] MEDS: ASPIRIN 81 MG PO SCH (08:00)
[2022-08-09] MEDS: SPIRONOLACTONE 25 MG TAB PO SCH (08:00)
--- NOTE | 2022-08-09 09:30 | P.PN ---
Subjective Progress Note Date: 08/09/22 HISTORY OF PRESENT ILLNESS: Patient is pleasant 81-year-old male with history of hypertension, BPH, questionable history of coronary artery disease however patient denies. Patient normally follows with Dr. Hernandez. He states he has had frequent issues where he will get chills and what appears to be Reiger's where he will be shaking for an hour or 2. Normally these only last for a day and are fairly infrequent. Over last 3-5 days he had had recurrent episodes and had borderline fever with temperature 100.5. Additional intermittent mild abdominal pain. Denies any cough. He states additionally has felt very fatigued and checked his blood pressure home and was in the 80s over 50s. He has had no changes in medications other then in March. Normally does not feel lightheaded. ProBNP was noted to be elevated at 3000 with normal kidney function, normal white blood cell count normal urinalysis. Chest x-ray showed concern of possible vascular congestion as well as possible pneumonia. He was given IV Lasix as well as Rocephin and his home blood pressure medications have additionally been held. Blood pressure now in the 120s to 140 range off of antihypertensive medications and currently states he feels better in terms of his lightheadedness. EKG shows sinus rhythm with Q waves V1 through V3 and nonspecific 0.[address] depressions in the lateral leads. Troponin normal 1. 08/07 Patient seen and examined. Patient denies any chest pain or pressure. He states he is feeling better in terms of lightheadedness and fatigue. Still with some mild dyspnea with walking to the bathroom. 08/08/2022 Patient examined this morning at the bedside. Patient denies chest pain or pressure. He denies shortness of breath. Patient currently denies dizziness or lightheadedness. Orthostatic blood pressures obtained this morning were negative. Echocardiogram completed revealing ejection fraction 40-45% with global hypokinesis, mild aortic regurgitation, mild tricuspid regurgitation. 08/09/2022 Patient examined this morning. Patient is sitting up in the chair. Patient denies chest pain or pressure. He denies shortness of breath. He denies dizz iness or lightheadedness. Blood pressure is in the [id number]. PHYSICAL EXAM: VITAL SIGNS: Reviewed. GENERAL: Well-developed in no acute distress. NECK: Supple. No JVD or thyromegaly LUNGS: Respirations even and unlabored. Lungs essentially clear to auscultation bilaterally. HEART: Regular rate and rhythm. S1 and S2 heard. EXTREMITIES: Normal range of motion. No clubbing or cyanosis. Peripheral pulses intact. No lower extremity edema ASSESSMENT: 1. Recent chills, shaking concerning for rigors and borderline fevers. Rule out infection/sepsis 2. Hypotension (BP 80/50's at home) with lightheadedness may be related to over medication versus sepsis 3. Acute on chronic heart failure, unknown systolic or diastolic. Appears mild and appears near euvolemic after 1 dose of IV Lasix 4. Hypertension 5. Reported history of CAD 6. Fatigue PLAN: Continue current cardiac medications Continue current dose of losartan. Reevaluate patient's blood pressure on an outpatient basis. If patient's blood pressure remains on the higher side, will increase patient's dose of losartan at that time. Stable for DC home today. We will sign off. Please reconsult if needed. Nurse practitioner note has been reviewed by physician. Signing provider agrees with the documented findings, assessment, and plan of care. Objective - Vital Signs Vital signs: Vital Signs Temp 98.0 F 08/09/22 06:28 Pulse 75 08/09/22 06:28 Resp 18 08/09/22 06:28 BP 149/83 08/09/22 06:28 Pulse Ox 96 08/09/22 06:28 FiO2 Intake & Output 08/08/22 08/09/22 08/09/22 18:59 06:59 18:59 Intake Total 118 400 Output Total 1600 1100 Balance -1482 -1100 400 Weight 97.522 kg Intake: Oral 118 400 Output: Urine 1600 1100 Other: Voiding Method Toilet Toilet # Voids 1 - Labs CBC & Chem 7: 08/07/22 05:14 08/07/22 05:14 Labs: Abnormal Lab Results - Last 24 Hours (Table) 08/09/22 Range/Units 06:11 Procalcitonin 0.87 H (0.02-0.09) ng/mL
[2022-08-09 11:41] VITALS: BP 127/81; PULSE 80; RESP 16; TEMP 97.8
--- NOTE | 2022-08-09 19:02 | P.DS ---
Providers Date of admission: 08/08/22 09:43 Expected date of discharge: 08/09/22 Attending physician: Mark Rivrea Consults: 08/05/22 18:15 Consult Physician Routine Consulting Provider: Chano Myers Consult Reason/Comments: CHF Do you want consulting provider notified?: Yes, Notify in am Primary care physician: Alli Gustafson [facility] Course: Hospital course: Patient is a 81-year-old male with a known history of coronary disease, hypertension, GERD, BPH and hypothyroidism presents to ER with his family most with complaints of generalized weakness for the past 1 week. Patient states that he has been having chills and abdominal pain intermittently for the past 3 days. Temperature check at home was 100.5 F. Otherwise patient denied any complaints of chest pain or shortness of breath. No cough or sputum production. No nausea vomiting abdominal pain or diarrhea. Patient did talk to his primary care physician regarding his chills and was recommended to go to ER for further evaluation. On admission chest x-ray showed cardiomegaly and mild pulmonary vascular congestion. Correlate with BNP for congestive heart failure. Superimposed lower lobe infiltrate not entirely excluded. Correlate for pneumonia or aspiration. EKG showed sinus rhythm with occasional ventricular premature complexes. Laboratory data showed WBC 9.5 hemoglobin 13.3 and platelets 159 Sodium 134 potassium 3.4 chloride 100 bicarbonate 21 BUN 15 and creatinine 0.92 liver enzymes are not elevated proBNP 3200 and troponin x2 negative and albumin 3.8 urinalysis is negative for infection with 2+ ketones Coronavirus PCR not detected. 08/07/2022 Patient is awake alert and oriented 3. No complaints of chest pain. patient has been afebrile. No cough or sputum production. shortness of breath did improve but still having some aggressive dyspnea.. No nausea vomiting or abdominal pain. No chills. Continued on antibiotics in the form of ceftriaxone and azithromycin. Repeat chest x-ray today showed increased interstitial markings bilaterally fever chronic parenchymal fibrosis. Mild cardiomegaly redemonstrated. No new acute infiltrate. Laboratory data showed WBC 5.0 hemoglobin 14.3 and platelets 188 Sodium 137 potassium 4.6 chloride 102 bicarb is 27.6 BUN 14.1 and creatinine 0.9 Cardiology is on board. 2-D echocardiogram was ordered. August 08: Care was assumed by me today. Some shortness of breath. Some cough. Appetite fair. Had a bowel movement. Up to the bathroom. On IV ceftriaxone. August 09: Feeling much better. Eating well. Pending much improved. 98% ro om air. Keen to go home. Discussion and discharge planning more than 35 minutes On examination: VITAL SIGNS: 97.8, 80, 16, 12/23/1980, 98% room air GENERAL APPEARANCE: Up in chair, comfortable HEENT: Normal external appearance of nose and ear. Oral cavity normal EYES: Pupils equal. Conjunctiva normal. NECK: JVD not raised. Mass not palpable. RESPIRATORY: Respiratory effort normal. Lungs clear to the bases CARDIOVASCULAR: First and second sounds normal. No edema. ABDOMEN: Soft. Liver and spleen not palpable. No tenderness. No mass palpable. PSYCHIATRY: Alert and oriented x3. Mood and affect normal. INVESTIGATIONS, reviewed in the clinical context: August 09: Procalcitonin 0.87 White count 5 hemoglobin 14.3 platelets 188 potassium 4.6 creatinine 0.9 Pro-calcitonin 3.55 Chest x-ray film personally reviewed by me: Some right basal infiltrates 2-D echocardiogram: EF 40-45% Assessment and plan:. -Lower lobe infiltrates and possible pneumonia with history of recent chills and fever at home, suspect gram-negative organism.: Better IV ceftriaxone. Ceftin for 3 days on discharge -Acute medical debility from pneumonia. Increase activity as tolerated -Acute on chronic CHF. From systolic dysfunction, EF 40-45%.: Improved Did receive IV Lasix earlier. Aldactone. Cozaar. -Essential Hypertension Cozaar. Toprol-XL. -Hypothyroidism Synthroid 75 g a -coronary disease no prior history of stent placement Aspirin, Lopressor. Add Lipitor -Obesity BMI 31.7 Weight loss measures Disposition: Home Plan - Discharge Summary Discharge Rx Participant: No New Discharge Prescriptions: New Spironolactone [Aldactone] 25 mg PO DAILY #30 tab Losartan [Cozaar] 50 mg PO HS #30 tab Sennosides-Docusate Sodium [Senokot-S] 1 tab PO DAILY #30 tablet cefUROXime axetiL [Ceftin] 500 mg PO BID #6 tab Atorvastatin [Lipitor] 20 mg PO HS #30 tab Metoprolol Succinate (ER) [Toprol XL] 50 mg PO DAILY #30 tab Continue Tamsulosin [Flomax] 0.4 mg PO W/SUPPER diazePAM [Valium] 2 mg PO BID PRN PRN Reason: leg cramps Cholecalciferol [Vitamin D3 (25 Mcg = 1000 Iu)] 50 mcg PO W/KT Finasteride [Proscar] 5 mg PO Q2D@1700 Calcium Carbonate [Tums] 1,000 mg PO TID PRN PRN Reason: Gi Upset Aspirin EC [Ecotrin Low Dose] 81 mg PO W/T Levothyroxine Sodium [Synthroid] 75 mcg PO AC-KT Famotidine [Pepcid AC] 10 mg PO DAILY PRN PRN Reason: Gi Upset Discontinued hydroCHLOROthiazide [Hydrodiuril] 25 mg PO W/T Docusate [Colace] 100 mg PO DAILY PRN PRN Reason: Constipation Aspirin/Sod Bicarb/Citric Acid [[place] Original Tab Eff] 1 tab PO QID PRN PRN Reason: Gi Upset Metoprolol Tartrate [Lopressor] 25 mg PO TID-W/MEALS Losartan Potassium 100 mg PO W/K Discharge Medication List Aspirin EC [Ecotrin Low Dose] 81 mg PO W/BRKFST 08/05/22 [History] Calcium Carbonate [Tums] 1,000 mg PO TID PRN 08/05/22 [History] Cholecalciferol [Vitamin D3 (25 Mcg = 1000 Iu)] 50 mcg PO W/BRKFST 08/05/22 [History] Famotidine [Pepcid AC] 10 mg PO DAILY PRN 08/05/22 [History] Finasteride [Proscar] 5 mg PO Q2D@1700 08/05/22 [History] Levothyroxine Sodium [Synthroid] 75 mcg PO AC-BRKFST 08/05/22 [History] Tamsulosin [Flomax] 0.4 mg PO W/SUPPER 08/05/22 [History] diazePAM [Valium] 2 mg PO BID PRN 08/05/22 [History] Atorvastatin [Lipitor] 20 mg PO HS #30 tab 08/09/22 [Rx] Losartan [Cozaar] 50 mg PO HS #30 tab 08/09/22 [Rx] Metoprolol Succinate (ER) [Toprol XL] 50 mg PO DAILY #30 tab 08/09/22 [Rx] Sennosides-Docusate Sodium [Senokot-S] 1 tab PO DAILY #30 tablet 08/09/22 [Rx] Spironolactone [Aldactone] 25 mg PO DAILY #30 tab 08/09/22 [Rx] cefUROXime axetiL [Ceftin] 500 mg PO BID #6 tab 08/09/22 [Rx] Follow up Appointment(s)/Referral(s): [facility] [NON-STAFF] - 1-2 Days (Agency will contact you to schedule visits.) Jesus Hernandez MD [STAFF PHYSICIAN] - 08/16/22 3:15 pm (Appointment is at main office.) Alli Gustafson MD [Primary Care Provider] - 08/12/22 1:30 pm Patient Instructions/Handouts: Heart Failure (DC), Heart Healthy Diet (DC), Low-Sodium Diet (DC), Fluid Restriction (DC), Pneumonia (DC) Activity/Diet/Wound Care/Special Instructions: [place] [facility]: [phone] [facility]: [phone] Discharge Disposition: HOME SELF-CARE
== END 2022-08-09 12:02 | disposition home or self-care (01) | DRG 291 ==
LOC: EC 13:49 → 6NMEDSUR 17:46 → OBSVTOIN 08-08 09:43
PROVIDERS: ADMIT Hospitalist; ATTEND Hospitalist
DX: I11.0 Hypertensive heart disease with heart failure (principal); I50.23 Acute on chronic systolic (congestive) heart failure; J15.6 Pneumonia due to other Gram-negative bacteria; E03.9 Hypothyroidism, unspecified; E66.9 Obesity, unspecified; Z68.31 Body mass index [BMI] 31.0-31.9, adult; I08.2 Rheumatic disorders of both aortic and tricuspid valves; I95.2 Hypotension due to drugs; I25.10 Atherosclerotic heart disease of native coronary artery without angina pectoris; K58.9 Irritable bowel syndrome, unspecified; I49.3 Ventricular premature depolarization; R53.81 Other malaise; N40.0 Benign prostatic hyperplasia without lower urinary tract symptoms; R10.9 Unspecified abdominal pain; T50.905A Adverse effect of unspecified drugs, medicaments and biological substances, initial encounter; K21.9 Gastro-esophageal reflux disease without esophagitis; Z20.822 Contact with and (suspected) exposure to COVID-19; Z79.82 Long term (current) use of aspirin; Z79.899 Other long term (current) drug therapy; Z79.890 Hormone replacement therapy
CPT/HCPCS: 36415; 71045; 71046; 80048; 80053; 80061; 81001; 83735; 83880; 84145; 84484; 85025; 85610; 85730; 87635; 93005; 93306; 96374; 96375; 99285

== ENCOUNTER 2022-08-27 18:18 | Inpatient (IN) | payer MEDICARE, BC ==
[2022-08-27 18:57] LABS: Basophils % (A) 0 %; Eosinophils # (A) 0.1 k/uL (0-0.7); Eosinophils % (A) 1 %; HCT 40.3 % (39.0-53.0); Lymphocytes # (A) 0.7 k/uL (1.0-4.8); Lymphocytes % (A) 8 %; MCH 30.2 pg (25.0-35.0); MCHC 34.8 g/dL (31.0-37.0); Mean Platelet Volume 7.2; Monocytes # (A) 0.6 k/uL (0-1.0); Monocytes % (A) 7 %; Neutrophils # (A) 7.5 k/uL (1.3-7.7); Neutrophils % (A) 83 %; Platelet Count 232 k/uL (150-450); RBC 4.63 m/uL (4.30-5.90); RDW 12.2 % (11.5-15.5); WBC 9.1 k/uL (3.8-10.6)
[2022-08-27] MEDS ORDERED: MAG HYDROX/AL HYDROX/SIMETH 30 ML CUP PO STA (18:59)
--- NOTE | 2022-08-27 19:03 | XR ---
EXAMINATION TYPE: XR chest 2V DATE OF EXAM: 08/27/2022 COMPARISON: 08/07/2022 HISTORY: Syncope TECHNIQUE: FINDINGS: Heart is normal. Lungs are clear of consolidation. There is coarsening of interstitial denny ings. There is spurring at the shoulder joints. There are no hilar masses. No pleural effusion. IMPRESSION: Pulmonary interstitial fibrosis. Normal heart. No change compared to old exam.
[2022-08-27 19:08] LABS: ALT 17 U/L (4-49); AST 26 U/L (17-59); African American GFR (CKD) 89 (>60 ml/min/1.73 sqM); Albumin 3.7 g/dL (3.5-5.0); Alkaline Phosphatase 67 U/L (38-126); Anion Gap 11 mmol/L; Blood Urea Nitrogen 16 mg/dL (9-20); Calcium 8.8 mg/dL (8.4-10.2); Carbon Dioxide 18 mmol/L (22-30); Chloride 98 mmol/L (98-107); Glucose 132 mg/dL (74-99); Non-African American GFR(CKD) 77 (>60 ml/min/1.73 sqM); Potassium 4.4 mmol/L (3.5-5.1); Sodium 127 mmol/L (137-145); Total Bilirubin 0.9 mg/dL (0.2-1.3); Total Protein 6.7 g/dL (6.3-8.2)
[2022-08-27 19:09] LABS: Partial Thromboplastin Time 26.7 sec (22.0-30.0); Prothrombin Time 10.8 sec (9.0-12.0)
--- NOTE | 2022-08-27 19:21 | ED ---
General Adult HPI - General Chief complaint: Syncope Stated complaint: syncope Time Seen by Provider: 08/27/22 18:25 Source: EMS Mode of arrival: EMS Limitations: no limitations - History of Present Illness Initial comments: 81-year-old male with past history of coronary artery disease, congestive heart failure presents emergency department after he had 2 syncopal episodes at home today. Patient recently hospitalized for CHF and pneumonia. Patient was discharged home and completed his course of antibiotics. Reports that today he is feeling generally weak. He was talking to his grandson in the bedroom when he had a syncopal episode. Grandson was able to catch him and lowered him to the ground. They thought that his symptoms were likely due to lack of eating therefore they made him some chicken soup. Patient ate his dinner and ended up having a second syncopal episode while at the kitchen table. EMS was called and he was alert by the time they got there. He reports feeling dizzy prior to the episode. Denies having any chest pain but admits to "reflux". No headaches or visual changes. No unilateral numbness or weakness. Admits that he has been constipated and took MiraLAX. Denies that he had a bowel movement at time of the syncopal episodes. No other alleviating, precipitating factors - Related Data Home Medications Medication Instructions Recorded Confirmed Aspirin EC [Ecotrin Low Dose] 81 mg PO W/BRKFST 08/05/22 08/27/22 Calcium Carbonate [Tums] 1,000 mg PO TID PRN 08/05/22 08/27/22 Cholecalciferol [Vitamin D3 (25 50 mcg PO W/KFST 08/05/22 08/27/22 Mcg = 1000 Iu)] Famotidine [Pepcid AC] 10 mg PO DAILY PRN 08/05/22 08/27/22 Finasteride [Proscar] 5 mg PO Q2D@1700 08/05/22 08/27/22 Levothyroxine Sodium [Synthroid] 75 mcg PO AC-BRKFST 08/05/22 08/27/22 Tamsulosin [Flomax] 0.4 mg PO W/SUPPER 08/05/22 08/27/22 Spironolactone [Aldactone] 12.5 mg PO DAILY 08/27/22 08/27/22 Previous Rx's Medication Instructions Recorded Atorvastatin [Lipitor] 20 mg PO HS #30 tab 08/09/22 Losartan [Cozaar] 50 mg PO HS #30 tab 08/09/22 Metoprolol Succinate (ER) [Toprol 50 mg PO DAILY #30 tab 08/09/22 XL] Sennosides-Docusate Sodium 1 tab PO DAILY #30 tablet 08/09/22 [Senokot-S] Allergies Allergy/AdvReac Type Severity Reaction Status Date / Time No Known Allergies Allergy Verified 08/27/22 22:00 Review of Systems ROS Statement: Those systems with pertinent positive or pertinent negative responses have been documented in the HPI. ROS Other: All systems not noted in ROS Statement are negative. Past Medical History Past Medical History: Coronary Artery Disease (CAD), Heart Failure, GERD/Reflux, Hypertension, Prostate Disorder, Thyroid Disorder History of Any Multi-Drug Resistant Organisms: None Reported Past Surgical History: No Surgical Hx Reported Past Anesthesia/Blood Transfusion Reactions: No Reported Reaction Past Psychological History: No Psychological Hx Reported Smoking Status: Former smoker Past Alcohol Use History: None Reported Past Drug Use History: None Reported General Exam Limitations: no limitations General appearance: alert, in no apparent distress Head exam: Present: atraumatic, normocephalic, normal inspection Eye exam: Present: normal appearance, PERRL, EOMI. Absent: scleral icterus, conjunctival injection, periorbital swelling ENT exam: Present: normal exam, mucous membranes moist Neck exam: Present: normal inspection. Absent: tenderness, meningismus, lymphadenopathy Respiratory exam: Present: normal lung sounds bilaterally. Absent: respiratory distress, wheezes, rales, rhonchi, stridor Cardiovascular Exam: Present: normal rhythm, tachycardia, normal heart sounds. Absent: systolic murmur, diastolic murmur, rubs, gallop, clicks GI/Abdominal exam: Present: soft, normal bowel sounds. Absent: distended, tenderness, guarding, rebound, rigid Extremities exam: Present: normal inspection, full ROM, normal capillary refill. Absent: tenderness, pedal edema, joint swelling, calf tenderness Back exam: Present: normal inspection Neurological exam: Present: alert, oriented X3, CN II-XII intact Psychiatric exam: Present: normal affect, normal mood Skin exam: Present: warm, dry, intact, normal color. Absent: rash Course Vital Signs 08/27/22 08/27/22 08/27/22 18:22 20:56 23:00 Temperature 98.2 F Pulse Rate 100 88 90 Pulse Rate [ Pulse Oximetery ] Respiratory 18 16 20 Rate Blood Pressure 128/87 115/82 122/74 Blood Pressure [Left Arm Supine] O2 Sat by Pulse 97 98 98 Oximetry 08/28/22 08/28/22 08/28/22 01:15 08:30 16:10 Temperature 97.7 F 97.7 F 97.8 F Pulse Rate 69 64 Pulse Rate [ 78 Pulse Oximetery ] Respiratory 16 18 16 Rate Blood Pressure 133/79 137/84 Blood Pressure 91/61 [Left Arm Supine] O2 Sat by Pulse 96 98 95 Oximetry EKG Findings - EKG Comments: EKG Findings:: EKG demonstrates sinus rhythm with a rate of 94. AK interval 253. QRS 122. QTC of 397. There are frequent PVCs. Left bundle branch block. Left axis deviation. No acute ST segment elevations or depressions Medical Decision Making - Medical Decision Making Arrival patient is placed into room 15. Thorough history and physical exam is performed. 12-lead EKG obtained. Patient placed on the monitor. Laboratory studies conducted. Sodium 127. No signs of volume overload at this time. Chest x-ray demonstrates no acute process. He is maintained on the monitoring and evaluation advisor and does have some ectopy noted. Recommended admission for which the patient was agreeable. Spoke with Dr. Rivera. Cardiology will be consulted. carotid Dopplers were ordered - Lab Data Result diagrams: 08/28/22 01:40 08/28/22 01:40 Lab Results 08/27/22 08/27/22 08/27/22 Range/Units 18:43 18:43 18:43 WBC 9.1 (3.8-10.6) k/uL RBC 4.63 (4.30-5.90) m/uL Hgb 14.0 (13.0-17.5) gm/dL Hct 40.3 (39.0-53.0) % MCV 87.0 (80.0-100.0) fL MCH 30.2 (25.0-35.0) pg MCHC 34.8 (31.0-37.0) g/dL RDW 12.2 (11.5-15.5) % Plt Count 232 (150-450) k/uL MPV 7.2 Neutrophils % 83 % Lymphocytes % 8 % Monocytes % 7 % Eosinophils % 1 % Basophils % 0 % Neutrophils # 7.5 (1.3-7.7) k/uL Lymphocytes # 0.7 L (1.0-4.8) k/uL Monocytes # 0.6 (0-1.0) k/uL Eosinophils # 0.1 (0-0.7) k/uL Basophils # 0.0 (0-0.2) k/uL PT 10.8 (9.0-12.0) sec INR 1.0 (<1.2) APTT 26.7 (22.0-30.0) sec Sodium 127 L (137-145) mmol/L Potassium 4.4 (3.5-5.1) mmol/L Chloride 98 (98-107) mmol/L Carbon Dioxide 18 L (22-30) mmol/L Anion Gap 11 mmol/L BUN 16 (9-20) mg/dL Creatinine 0.92 (0.66-1.25) mg/dL Est GFR (CKD-EPI)AfAm 89 (>60 ml/min/1.73 sqM) Est GFR (CKD-EPI)NonAf 77 (>60 ml/min/1.73 sqM) Glucose 132 H (74-99) mg/dL Calcium 8.8 (8.4-10.2) mg/dL Magnesium 2.0 (1.6-2.3) mg/dL Total Bilirubin 0.9 (0.2-1.3) mg/dL AST 26 (17-59) U/L ALT 17 (4-49) U/L Alkaline Phosphatase 67 (38-126) U/L Troponin I (0.000-0.034) ng/mL NT-Pro-B Natriuret Pep pg/mL Total Protein 6.7 (6.3-8.2) g/dL Albumin 3.7 (3.5-5.0) g/dL TSH 2.210 (0.465-4.680) mIU/L 08/27/22 08/27/22 Range/Units 18:43 18:43 WBC (3.8-10.6) k/uL RBC (4.30-5.90) m/uL Hgb (13.0-17.5) gm/dL Hct (39.0-53.0) % MCV (80.0-100.0) fL MCH (25.0-35.0) pg MCHC (31.0-37.0) g/dL RDW (11.5-15.5) % Plt Count (150-450) k/uL MPV Neutrophils % % Lymphocytes % % Monocytes % % Eosinophils % % Basophils % % Neutrophils # (1.3-7.7) k/uL Lymphocytes # (1.0-4.8) k/uL Monocytes # (0-1.0) k/uL Eosinophils # (0-0.7) k/uL Basophils # (0-0.2) k/uL PT (9.0-12.0) sec INR (<1.2) APTT (22.0-30.0) sec Sodium (137-145) mmol/L Potassium (3.5-5.1) mmol/L Chloride (98-107) mmol/L Carbon Dioxide (22-30) mmol/L Anion Gap mmol/L BUN (9-20) mg/dL Creatinine (0.66-1.25) mg/dL Est GFR (CKD-EPI)AfAm (>60 ml/min/1.73 sqM) Est GFR (CKD-EPI)NonAf (>60 ml/min/1.73 sqM) Glucose (74-99) mg/dL Calcium (8.4-10.2) mg/dL Magnesium (1.6-2.3) mg/dL Total Bilirubin (0.2-1.3) mg/dL AST (17-59) U/L ALT (4-49) U/L Alkaline Phosphatase (38-126) U/L Troponin I <0.012 (0.000-0.034) ng/mL NT-Pro-B Natriuret Pep 510 pg/mL Total Protein (6.3-8.2) g/dL Albumin (3.5-5.0) g/dL TSH (0.465-4.680) mIU/L Disposition Clinical Impression: Syncope, Hyponatremia, Constipation Disposition: ADMITTED IP TO THIS [facility] Is patient prescribed a controlled substance at d/c from ED?: No Time of Disposition: 21:03 Decision to Admit Reason: Admit from EC Decision Date: 08/27/22 Decision Time: 21:03
[2022-08-27] MEDS ORDERED: NALOXONE 0.4 MG/ML 1 ML VIAL IV PRN (21:03)
[2022-08-27] MEDS ORDERED: diazePAM 2 MG TAB PO PRN (21:27)
[2022-08-27] MEDS: LOSARTAN 50 MG TAB PO SCH (22:10)
--- NOTE | 2022-08-27 22:45 | US ---
EXAMINATION TYPE: US carotid duplex BILAT DATE OF EXAM: 08/27/2022 COMPARISON: NONE CLINICAL HISTORY: syncope. syncope TECHNIQUE: Carotid duplex ultrasound examination. Indirect Doppler criteria was utilized. 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 No evidence of increased velocities IMPRESSION: There is antegrade flow in the vertebral arteries. The images and measurements suggest less than 25% stenosis in both internal carotid arteries. Criteria for Assigning % of Stenosis / Diameter reduction (Estimation based on the indirect measurements of the internal carotid artery velocities (ICA PSV). 1. Normal (no stenosis)=ICA PSV < 125 cm/s: ratio < 2.0: ICA EDV<40 cm/s. 2. Less than 50% stenosis=ICA PSV < 125 cm/s: ratio < 2.0: ICA EDV<40 cm/s. 3. 50 to 69% stenosis=ICA PSV of 125 to 230 cm/s: ration 2.0 ? 4.0: ICA EDV 40-100 cm/s. 4. Greater than 70% stenosis to near occlusion= ICA PSV > 230 cm/s: ratio > 4.0: ICA EDV > 100 cm/s. 5. Near occlusion= ICA PSV velocities may be low or undetectable: variable ratio and ICA EDV. 6. Total occlusion=unable to detect flow.
--- NOTE | 2022-08-27 23:04 | XR ---
EXAMINATION TYPE: XR KUB DATE OF EXAM: 08/27/2022 COMPARISON: NONE HISTORY: Constipation TECHNIQUE: 2 views supine FINDINGS: There is no sign of intestinal obstruction or pneumoperitoneum. Fecal pattern is fairly nor mal. No evidence of a mass. There is a mild lumbar levoscoliosis. Lung bases are clear. IMPRESSION: Mild levoscoliosis. Nonacute abdomen. No sign of constipation.
[2022-08-28] MEDS: CALCIUM CARBONATE 500 MG CHEWABLE PO PRN ×2 (01:03→09:21)
[2022-08-28 02:10] LABS: Basophils % (A) 1 %; Eosinophils # (A) 0.3 k/uL (0-0.7); Eosinophils % (A) 5 %; HCT 39.4 % (39.0-53.0); HGB 13.4 gm/dL (13.0-17.5); Lymphocytes # (A) 0.9 k/uL (1.0-4.8); Lymphocytes % (A) 15 %; MCV 88.1 fL (80.0-100.0); Mean Platelet Volume 7.1; Monocytes # (A) 0.6 k/uL (0-1.0); Monocytes % (A) 9 %; Neutrophils % (A) 67 %; Platelet Count 198 k/uL (150-450); RBC 4.47 m/uL (4.30-5.90); RDW 12.4 % (11.5-15.5); WBC 5.9 k/uL (3.8-10.6)
[2022-08-28 02:18] LABS: Calcium 8.8 mg/dL (8.4-10.2); Potassium 4.7 mmol/L (3.5-5.1)
[2022-08-28] MEDS: LEVOTHYROXINE 75 MCG TAB PO SCH (06:31)
[2022-08-28] MEDS: METOPROLOL SUCCINATE (ER) 50 MG TAB.ER.24H PO SCH (09:20)
[2022-08-28] MEDS: SPIRONOLACTONE 25 MG TAB PO SCH (09:20)
[2022-08-28] MEDS ORDERED: FAMOTIDINE 20 MG TAB PO PRN (09:56)
[2022-08-28] MEDS: ASPIRIN 81 MG PO SCH (12:04)
[2022-08-28] MEDS: ENOXAPARIN 40 MG/0.4 ML SYRINGE SQ SCH (12:05)
[2022-08-28] MEDS: SENNOSIDES-DOCUSATE SODIUM 1 EACH TAB PO SCH ×2 (12:06)
[2022-08-28] MEDS: CHOLECALCIFEROL 25 MCG (1000 IU) TABLET PO SCH (12:06)
[2022-08-28] MEDS ORDERED: LORazepam 0.5 MG TAB PO PRN (13:50)
[2022-08-28] MEDS ORDERED: LACTULOSE 20 GM/30 ML CUP PO PRN (13:50)
[2022-08-28] MEDS ORDERED: ONDANSETRON 4 MG/2 ML VIAL IVP PRN (13:50)
[2022-08-28] MEDS ORDERED: MELATONIN 3 MG TABLET PO PRN (13:50)
[2022-08-28] MEDS ORDERED: ACETAMINOPHEN TAB 325 MG TAB PO PRN (13:50)
--- NOTE | 2022-08-28 13:52 | P.HPIM ---
History of Present Illness H&P Date: 08/28/22 Chief Complaint: Past out Patient is a 81-year-old male with a known history of coronary disease, hypertension, GERD, BPH and hypothyroidism Admitted over to the hospital over 2 weeks ago with diagnosis of CHF and pneumonia. Patient yesterday was in his bedroom is his grandson. It was passed known. She hadn't eaten anything since morning. He felt dizzy and then patient passed out. Came around rather quickly. His grandson gave him some chicken soup. When he was sitting down. An effort to when he started feeling increasing disease dizzy and again passed out. He has been feeling tired with decreased appetite. No chest pain or palpitation. No tongue biting. No incontinence. No seizure activity reported. Patient also does not like to 8 because he is on the low- sodium diet. Review of systems: GEN.: Tired, decreased appetite EYES: None HEENT: [Decreased hearing NECK: None RESPIRATORY: None CARDIOVASCULAR: None GASTROINTESTINAL: None GENITOURINARY: None MUSCULOSKELETAL: Joint pains LYMPHATICS: None HEMATOLOGICAL: None PSYCHIATRY: None NEUROLOGICAL: [No changes speech, vision, no focal weakness Past medical history to include: CHF, EF 40-45%, hypertension, hypothyroid, CAD with stent Social history: Former smoker. No alcohol. Family history: Reviewed, noncontributory to presentation Physical examination: VITAL SIGNS: 97.7, 69, 18, 133 with 79, 98% room air GENERAL: BMI 29.1, declining but awake, tired. EYES: Pupils equal. Conjunctiva normal. HEENT: External appearance of nose and ears normal, oral cavity grossly normal. NECK: JVD not raised; masses not palpable. HEART: First and second heart sounds are normal; no edema. LUNGS: Respiratory rate normal; clear to auscultation. ABDOMEN: Soft, nontender, liver spleen not palpable, no masses palpable. PSYCH: Alert and oriented x3; mood and affect normal. MUSCULOSKELETAL:No Clubbing/cyanosis;muscles-grossly intact, evidence of OA NEUROLOGICAL: Cranial nerves grossly intact; no facial asymmetry, power and sensation grossly intact. LYMPHATICS: No lymph nodes palpable in the axilla and neck INVESTIGATIONS, reviewed in the clinical context: WBC 5.9 hemoglobin 13.4 platelets 198 sodium 127 potassium 4.7 creatinine 0.97 EKG tracing personally reviewed by me: SHANTE. Chest x-ray film personally reviewed by me: Possible pulmonary fibrosis/chronic changes Troponin I less than 0.012 Previous studies: 2-D echocardiogram: EF 40-45% Assessment and plan:. -Syncope, likely vasovagal. Patient had not eaten since morning. Has not been eating because does not like low-salt diet. Check orthostatic. Telemetry. -chronic CHF. From systolic dysfunction, EF 40-45%. Stable Aldactone. Cozaar. -Essential Hypertension Cozaar. Toprol-XL. -Hypothyroidism Synthroid 75 g -coronary disease no prior history of stent placement Aspirin, Lopressor. Lipitor Check orthostatic. Telemetry to rule out arrhythmia. Gentle hydration. Regular diet. IV fluids at 50 mL an hour. Other medications to continue. Discussed with patient. Fall precautions. Past Medical History Past Medical History: Coronary Artery Disease (CAD), Heart Failure, GERD/Reflux, Hypertension, Prostate Disorder, Thyroid Disorder History of Any Multi-Drug Resistant Organisms: None Reported Past Surgical History: No Surgical Hx Reported Past Anesthesia/Blood Transfusion Reactions: No Reported Reaction Past Psychological History: No Psychological Hx Reported Smoking Status: Former smoker Past Alcohol Use History: None Reported Past Drug Use History: None Reported Medications and Allergies Home Medications Medication Instructions Recorded Confirmed Type Aspirin EC [Ecotrin Low Dose] 81 mg PO W/KFST 08/05/22 08/27/22 History Calcium Carbonate [Tums] 1,000 mg PO TID PRN 08/05/22 08/27/22 History Cholecalciferol [Vitamin D3 (25 50 mcg PO W/KFST 08/05/22 08/27/22 History Mcg = 1000 Iu)] Famotidine [Pepcid AC] 10 mg PO DAILY PRN 08/05/22 08/27/22 History Finasteride [Proscar] 5 mg PO Q2D@1700 08/05/22 08/27/22 History Levothyroxine Sodium [Synthroid] 75 mcg PO AC-BRKFST 08/05/22 08/27/22 History Tamsulosin [Flomax] 0.4 mg PO W/SUPPER 08/05/22 08/27/22 History diazePAM [Valium] 2 mg PO BID PRN 08/05/22 08/27/22 History Atorvastatin [Lipitor] 20 mg PO HS #30 tab 08/09/22 08/27/22 Rx Losartan [Cozaar] 50 mg PO HS #30 tab 08/09/22 08/27/22 Rx Metoprolol Succinate (ER) [Toprol 50 mg PO DAILY #30 tab 08/09/22 08/27/22 Rx XL] Sennosides-Docusate Sodium 1 tab PO DAILY #30 tablet 08/09/22 08/27/22 Rx [Senokot-S] Spironolactone [Aldactone] 12.5 mg PO DAILY 08/27/22 08/27/22 History Allergies Allergy/AdvReac Type Severity Reaction Status Date / Time No Known Allergies Allergy Verified 08/27/22 22:00 Physical Exam Vitals: Vital Signs Temp Pulse Pulse Resp BP BP Pulse Ox 08/28/22 08:30 97.7 F 69 18 133/79 98 08/28/22 01:15 97.7 F 78 16 91/61 96 08/27/22 23:00 90 20 122/74 98 08/27/22 20:56 88 16 115/82 98 08/27/22 18:22 98.2 F 100 18 128/87 97 Intake and Output 08/27/22 08/28/22 08/28/22 22:59 06:59 14:59 Output Total 500 Balance -500 Output: Urine 500 Other: Weight 89.358 kg Results CBC & Chem 7: 08/28/22 01:40 08/28/22 01:40 Labs: Abnormal Lab Results - Last 24 Hours (Table) 08/27/22 08/27/22 08/28/22 Range/Units 18:43 18:43 01:40 Lymphocytes # 0.7 L 0.9 L (1.0-4.8) k/uL Sodium 127 L (137-145) mmol/L Carbon Dioxide 18 L (22-30) mmol/L Glucose 132 H (74-99) mg/dL 08/28/22 Range/Units 01:40 Lymphocytes # (1.0-4.8) k/uL Sodium 130 L (137-145) mmol/L Carbon Dioxide 21 L (22-30) mmol/L Glucose (74-99) mg/dL
[2022-08-28] MEDS ORDERED: LACTATED RINGERS 1,000 ML IV SCH (14:00)
[2022-08-28] MEDS ORDERED: FINASTERIDE 5 MG TAB PO SCH (17:00)
[2022-08-28] MEDS ORDERED: TAMSULOSIN 0.4 MG CAP.ER.24H PO SCH (17:30)
[2022-08-28] MEDS ORDERED: ATORVASTATIN 20 MG TAB PO SCH (21:00)
[2022-08-28] MEDS: LOSARTAN 50 MG TAB PO SCH (21:49)
--- NOTE | 2022-08-29 00:32 | CONS ---
CONSULTATION CHIEF COMPLAINT: Syncope. HISTORY OF PRESENT ILLNESS: This is an 81-year-old gentleman with history of coronary artery disease, recent hospitalization with congestive heart failure and pneumonia, comes into hospital complaining of feeling weak, not feeling well, and having had a syncopal event. The first episode happened while the patient was standing up and talking to his grandson for about 10 to 15 minutes and then he had transient loss of consciousness and his grandson was with him and held on to him, and his grandson made some soup. While he was eating, he again felt dizzy, unwell, and had transient loss of consciousness. The patient has constipation and has recently taken some medications for the same. At the time of my evaluation, he appears comfortable at rest and is free of symptoms. EKG shows sinus rhythm, left axis deviation, and PVCs. LABORATORY DATA: Labs show that the hemoglobin is 13.4. Trops are negative. Creatinine is normal. Exact etiology for patient's syncope is unclear, could be vasovagal in origin. PAST MEDICAL HISTORY: Significant for hypertension, hypothyroidism, dyslipidemia, benign prostatic hypertrophy, and GERD. MEDICATIONS AT HOME: 1. Aldactone. 2. Senokot. 3. Toprol-XL. 4. Synthroid. 5. Aspirin. 6. Valium. 7. Flomax. 8. Cozaar. 9. Proscar. 10.Pepcid. 11.Tums. 12.Lipitor. ALLERGIES: There are no known drug allergies. FAMILY HISTORY: Negative for premature coronary artery disease. SOCIAL HISTORY: Negative for current smoking, EtOH abuse, or drug abuse. REVIEW OF SYSTEMS: A review of systems has been performed. Pertinents are as documented. PHYSICAL EXAMINATION: GENERAL: Comfortable at rest. VITAL SIGNS: Stable. NECK: There is no jugular venous distention. Carotid upstroke is normal. There is no bruit. CHEST: Reveals good air entry bilaterally. HEART: Reveals first and second heart sounds. Systolic murmur at the left lower sternal border. ABDOMEN: Soft. EXTREMITIES: Did not reveal any edema. Peripheral pulses are felt. ASSESSMENT: 1. Syncope, rule out cardiac causes. 2. Hypertension. 3. Hypothyroidism. 4. Dyslipidemia. PLAN: The patient's syncope is probably vasovagal in origin. We will continue to monitor him on telemetry to rule out cardiac arrhythmia. Obtain a 2D echo, and if his workup is benign, he may be discharged home and arrange outpatient followup, and he will benefit from an outpatient stress test and monitor. CHELSY / NORBERTN: [id number] /
[2022-08-29 07:37] VITALS: BP 120/75; PULSE 70; RESP 17; TEMP 97.9
[2022-08-29] MEDS: ENOXAPARIN 40 MG/0.4 ML SYRINGE SQ SCH (08:39)
[2022-08-29] MEDS: METOPROLOL SUCCINATE (ER) 50 MG TAB.ER.24H PO SCH (08:39)
[2022-08-29] MEDS: ASPIRIN 81 MG PO SCH (08:40)
[2022-08-29] MEDS: LEVOTHYROXINE 75 MCG TAB PO SCH (08:40)
[2022-08-29] MEDS: CHOLECALCIFEROL 25 MCG (1000 IU) TABLET PO SCH (08:40)
[2022-08-29] MEDS: SPIRONOLACTONE 25 MG TAB PO SCH (08:40)
[2022-08-29] MEDS: SENNOSIDES-DOCUSATE SODIUM 1 EACH TAB PO SCH (08:40)
--- NOTE | 2022-08-29 09:14 | P.PN ---
Subjective This is an 81-year-old male past medical history of hypertension, BPH, nonischemic cardiomyopathy, mild nonobstructive coronary disease (cardiac cath 2012), congestive heart failure, former is tobacco use. He follows in the office with Dr. Hernandez. We have been asked to see in consultation for syncope. Patient seen and examined at bedside, no distress. He denies any lightheadedness, dizziness, chest pain or shortness of breath. Telemetry rev iewed patient in sinus rhythm with heart rates in the 50s70s, occasional PVCs. No arrhythmia noted. Orthostatic vital signs are negative. Outpatient cardiology records obtained, patient underwent Lexiscan stress test 03/15/2022 which revealed a fixed inferior and inferolateral wall defect and no rmal gated SPECT images suggest of soft tissue attenuation, no evidence of stress-induced ischemia. Echocardiogram 08/06/2022 revealed an EF of 4045 %, mild LVH, global hypokinesis, mild aortic regurgitation, mild tricuspid regurgitation, RVSP of 13 mmHg. GENERAL: Well-appearing, well-nourished and in no acute distress. NECK: Supple without JVD or thyromegaly. LUNGS: Breath sounds clear to auscultation bilaterally. Respiration equal and unlabored. No wheezes, rales or rhonchi. HEART: Regular rate and rhythm with diastolic murmur. S1 and S2 heard. EXTREMITIES: Normal range of motion, no edema. No clubbing or cyanosis. Peripheral pulses intact. ASSESSMENT Syncopal episode, likely vasovagal Hypertension BPH Nonischemic cardiomyopathy Mild nonobstructive coronary disease (cardiac cath 2012) Chronic congestive heart failure Former is tobacco use PLAN From a cardiology perspective, no further inpatient workup indicated at this time. Discharge per primary care team. Recommend follow up outpatient with Dr. Hernandez, patient's appointment rescheduled for 09/06. Nurse Practitioner note has been reviewed, I agree with a documented findings and plan of care. Patient was seen and examined. Objective - Vital Signs Vital signs: Vital Signs Temp 97.9 F 08/29/22 07:36 Pulse 70 08/29/22 07:36 Resp 17 08/29/22 07:36 BP 120/75 08/29/22 07:36 Pulse Ox 95 08/29/22 07:36 FiO2 Intake & Output 08/28/22 08/29/22 08/29/22 18:59 06:59 18:59 Other: # Voids 1 3 - Labs CBC & Chem 7: 08/28/22 01:40 08/28/22 01:40
--- NOTE | 2022-08-29 13:27 | P.DS ---
Providers Date of admission: 08/27/22 21:03 Expected date of discharge: 08/29/22 Attending physician: Mark Rivera Consults: 08/27/22 21:03 Consult Physician Urgent Consulting Provider: [facility] Consult Reason/Comments: acute syncope Do you want consulting provider notified?: Yes Primary care physician: Alli Gustafson [facility] Course: Chief Complaint: Past out Patient is a 81-year-old male with a known history of coronary disease, hypertension, GERD, BPH and hypothyroidism Admitted over to the hospital over 2 weeks ago with diagnosis of CHF and pneumonia. Patient yesterday was in his bedroom is his grandson. It was passed known. She hadn't eaten anything since morning. He felt dizzy and then patient passed out. Came around rather quickly. His grandson gave him some chicken soup. When he was sitting down. An effort to when he started feeling increasing disease dizzy and again passed out. He has been feeling tired with decreased appetite. No chest pain or palpitation. No tongue biting. No incontinence. No seizure activity reported. Patient also does not like to 8 because he is on the low- sodium diet. August 29: Patient feeling better. Told to take things easy including getting up. Diet was discussed. Not to go hungry. Doyle to be vasovagal episode. Past medical history to include: CHF, EF 40-45%, hypertension, hypothyroid, CAD with stent Social history: Former smoker. No alcohol. Family history: Reviewed, noncontributory to presentation Physical examination: VITAL SIGNS: 97.9, 70, 17, 120/75, 95% room air GENERAL: Up in a chair, comfortable EYES: Pupils equal. Conjunctiva normal. HEENT: External appearance of nose and ears normal, oral cavity grossly normal. NECK: JVD not raised; masses not palpable. HEART: First and second heart sounds are normal; no edema. LUNGS: Respiratory rate normal; clear to auscultation. ABDOMEN: Soft, nontender, liver spleen not palpable, no masses palpable. PSYCH: Alert and oriented x3; mood and affect normal. MUSCULOSKELETAL:No Clubbing/cyanosis;muscles-grossly intact, evidence of OA INVESTIGATIONS, reviewed in the clinical context: WBC 5.9 hemoglobin 13.4 platelets 198 sodium 127 potassium 4.7 creatinine 0.97 EKG tracing personally reviewed by me: PVC. Chest x-ray film personally reviewed by me: Possible pulmonary fibrosis/chronic changes Troponin I less than 0.012 Previous studies: 2-D echocardiogram: EF 40-45% Assessment and plan:. -Syncope, likely vasovagal. Patient had not eaten since morning. Has not been eating because does not like low-salt diet. Orthostatic ruled out. Telemetry. -chronic CHF. From systolic dysfunction, EF 40-45%. Stable Aldactone. Cozaar. -Essential Hypertension Cozaar. Toprol-XL. -Hypothyroidism Synthroid 75 g -coronary disease no prior history of stent placement Aspirin, Lopressor. Lipitor -Hyponatremia from decreased salt Diet discussed Disposition: Home Plan - Discharge Summary New Discharge Prescriptions: Continue Tamsulosin [Flomax] 0.4 mg PO W/SUPPER Cholecalciferol [Vitamin D3 (25 Mcg = 1000 Iu)] 50 mcg PO W/BRKFST Finasteride [Proscar] 5 mg PO Q2D@1700 Losartan [Cozaar] 50 mg PO HS #30 tab Sennosides-Docusate Sodium [Senokot-S] 1 tab PO DAILY #30 tablet Calcium Carbonate [Tums] 1,000 mg PO TID PRN PRN Reason: Gi Upset Aspirin EC [Ecotrin Low Dose] 81 mg PO W/BRKFST Levothyroxine Sodium [Synthroid] 75 mcg PO AC-BRKFST Famotidine [Pepcid AC] 10 mg PO DAILY PRN PRN Reason: Gi Upset Atorvastatin [Lipitor] 20 mg PO HS #30 tab Metoprolol Succinate (ER) [Toprol XL] 50 mg PO DAILY #30 tab Spironolactone [Aldactone] 12.5 mg PO DAILY Discontinued diazePAM [Valium] 2 mg PO BID PRN PRN Reason: leg cramps Discharge Medication List Aspirin EC [Ecotrin Low Dose] 81 mg PO W/BRKFST 08/05/22 [History] Calcium Carbonate [Tums] 1,000 mg PO TID PRN 08/05/22 [History] Cholecalciferol [Vitamin D3 (25 Mcg = 1000 Iu)] 50 mcg PO W/BRKFST 08/05/22 [History] Famotidine [Pepcid AC] 10 mg PO DAILY PRN 08/05/22 [History] Finasteride [Proscar] 5 mg PO Q2D@1700 08/05/22 [History] Levothyroxine Sodium [Synthroid] 75 mcg PO AC-BRKFST 08/05/22 [History] Tamsulosin [Flomax] 0.4 mg PO W/SUPPER 08/05/22 [History] Atorvastatin [Lipitor] 20 mg PO HS #30 tab 08/09/22 [Rx] Losartan [Cozaar] 50 mg PO HS #30 tab 08/09/22 [Rx] Metoprolol Succinate (ER) [Toprol XL] 50 mg PO DAILY #30 tab 08/09/22 [Rx] Sennosides-Docusate Sodium [Senokot-S] 1 tab PO DAILY #30 tablet 08/09/22 [Rx] Spironolactone [Aldactone] 12.5 mg PO DAILY 08/27/22 [History] Follow up Appointment(s)/Referral(s): [facility] [NON-STAFF] - 1-2 Days Jesus Hernandez MD [STAFF PHYSICIAN] - 09/06/22 10:00 am Alli Gustafson MD [Primary Care Provider] - 09/02/22 11:00 am (will being going to the [place] office and will be meeting with zane ) Patient Instructions/Handouts: Syncope (DC)
== END 2022-08-29 12:39 | disposition still patient (30) | DRG 312 ==
LOC: EC 18:18 → 5NMEDONC 21:03 → 4SSUR 08-28 15:43
PROVIDERS: ADMIT Hospitalist; ATTEND Hospitalist
DX: R55 Syncope and collapse (principal); E87.1 Hypo-osmolality and hyponatremia; I42.8 Other cardiomyopathies; I50.22 Chronic systolic (congestive) heart failure; I08.2 Rheumatic disorders of both aortic and tricuspid valves; I11.0 Hypertensive heart disease with heart failure; E03.9 Hypothyroidism, unspecified; J84.10 Pulmonary fibrosis, unspecified; K21.9 Gastro-esophageal reflux disease without esophagitis; I49.3 Ventricular premature depolarization; I44.7 Left bundle-branch block, unspecified; N40.0 Benign prostatic hyperplasia without lower urinary tract symptoms; I25.10 Atherosclerotic heart disease of native coronary artery without angina pectoris; E78.5 Hyperlipidemia, unspecified; R01.1 Cardiac murmur, unspecified; K59.00 Constipation, unspecified; Z79.890 Hormone replacement therapy; Z79.899 Other long term (current) drug therapy; Z79.82 Long term (current) use of aspirin; Z87.891 Personal history of nicotine dependence; Z28.310 Unvaccinated for COVID-19; Z87.01 Personal history of pneumonia (recurrent)
CPT/HCPCS: 36415; 71046; 74018; 80048; 80053; 83735; 83880; 84443; 84484; 85025; 85610; 85730; 93005; 93880; 96372; 99285